=== PATIENT | male | born 1935 | race Hispanic/Latino ===

== ENCOUNTER 2016-05-18 20:46 | Inpatient (IN) | payer MEDICARE ==
[2016-05-18] MEDS: NORMAL SALINE 1,000 ML IV SCH (21:05)
[2016-05-18 21:25] LABS: Hematocrit 29.8 % (42.0-52.0); Hemoglobin 9.1 gm/dL (13.5-18.0); Mean Cell Volume 87.6 fl (78-100); Mean Corpuscular Hemoglobin 26.8 pg (27-31); Mean Corpuscular Hgb Conc 30.5 g/dl (32-36); Mean Platelet Volume 10.5 fl (6.0-9.5); Neutrophil # 3.9 K/mm3 (1.3-6.0); Neutrophil % 65.6 % (42-75.0); Platelet Count 255 K/mm3 (150-450); Red Cell Distribution Width 19.7 % (11.5-14.0); White Blood Count 5.9 K/mm3 (4.0-10.5)
[2016-05-18] MEDS ORDERED: ACETAMINOPHEN 325 MG TABLET PO ONE (21:26)
--- OUTSIDE RECORDS SUMMARY | 2016-05-18 21:37 | XMS REPORT | Continuity of Care Document ---
:1935 Author Organization [facility] ([facility]) Address [address] [place] [address] Phone [phone] Care Team Providers Name Role Phone Isabella Blakely Primary Care Provider [phone] Source Comments This disclosure is being made pursuant to the Care Everywhere program, applicable federal and state laws, and may not contain all informaitonavailable regarding this patient.[facility] ([facility]) Active Allergies and Adverse Reactions Allergen Noted Date Severity Reactions Comments Iodine Rash Current Medications Prescription Sig. Disp. Refills Start Date End Date Status rosuvastatin (CRESTOR) Take 10 mg by Active 20 mg tablet mouth every evening. metoPROLol 50 mg Take 50 mg by Active tablet mouth 2 times daily. aspirin 81 mg EC Take 81 mg by Active tablet mouth daily. nitroglycerin 0.[address] 1 tablet 05/31/2009 Active SL tablet (0.4MG) by Sublingual route at the 1st sign of attack; may repeat every 5 min until relief; if pain persists after 3 tablets in 15 min, prompt medical attention is recommended clotrimazole-betametha Apply 1 02/19/2015 Active sone 1-0.05% cream application topically 2 times daily . metFORMIN 1,000 mg Take 1,000 mg by 05/23/2015 Active tablet mouth 2 times daily. ASMANEX TWISTHALER 220 Use 2 Puffs by 09/30/2015 Active mcg (120 doses) inhalation 2 inhaler times daily. finasteride 5 mg Take 5 mg by 09/29/2015 Active tablet mouth daily. diphenhydrAMINE 50 mg Take 1 capsule 1 capsule 0 02/22/2016 Active capsule (50 mg total) by mouth once. Take 1 hour prior to the procedure ondansetron 8 mg Take 1 tablet (8 12 tablet 11 03/13/2016 Active tablet mg total) by mouth every 8 hours as needed for nausea/vomiting. PROchlorPERAZINE 10 mg Take 1 tablet (10 30 tablet 11 03/13/2016 Active tablet mg total) by mouth every 6 hours as needed for nausea/vomiting. sennosides 8.8 mg/5 mL Take 5 mL by 237 mL 2 03/21/2016 Active syrup mouth 2 times daily as needed for Constipation. ORAMAGIC-RX oral wound Take 15 mL by 315 mL 2 03/21/2016 Active rinse mouth 4 times daily as needed for Other (sore mouth/tongue). nystatin 100,000 Take 5 mL by 260 mL 0 03/21/2016 Active unit/mL suspension mouth 4 times daily. Swish and swallow. docusate 10 mg/mL Take 10 mL (100 473 mL 0 03/21/2016 Active solution mg total) by mouth 2 times daily as needed. sodium chloride 1 gram Take 1 tablet (1 90 tablet 1 04/01/2016 Active tablet g total) by mouth 2 times daily. pantoprazole 40 mg EC Take 1 tablet (40 30 tablet 2 04/01/2016 Active tablet mg total) by mouth daily. acetaminophen 500 mg Take 500 mg by Active tablet mouth every 6 hours as needed. acetaminophen 325 mg Take 2 tablets 120 tablet 3 04/22/2016 Active tablet (650 mg total) by mouth every 6 hours as needed. gabapentin 300 mg Take 1 capsule 30 capsule 11 04/24/2016 Active capsule (300 mg total) by mouth at bedtime. hydroxyurea 500 mg Take 1 capsule 30 capsule 6 04/24/2016 Active capsule (500 mg total) by mouth every 48 hours. 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 Well preserved LV function. 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 Acute inferior HI Coronary artery disease Overview: Formatting of this note may be different from the original. 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 Lmain normal. LAD large with mild irregs less than 25% mid stenosis. Cx mild irregs. RCA prox long 95% stenosis.) - 12/30/2002 STRESS TESTS: SEH (6mins. HR 134. Neg stress echo.) - 03/19/2006 SEH (6mins. HR 105. Neg stress echo for new areas of ischemia. EF 50%.) - 02/16 VASCULAR: Carotid Duplex (Minimal plaque formation bilaterally with no significant stenosis detected. Bilateral antegrade vertebral flow.) - 09/05/2004 Carotid Duplex (Vertebral: Bilateral Antegrade Flow, Right ICA peak systolic 122 cm, ICA peak diastolic 38 cm. ICA to CCA ratio 1.3. Left ICA peak systolic 82 cm, ICA peak diastolic 29. Ratio 0.7. Mil d atherosclerotic changes bilaterally.) - 06/06/2009 Carotid Duplex (Mild Disease in Bilateral ICAs, Vertebral: Bilateral Antegrade Flow) - 06/2011 Resolved Problems Problem Noted Date Resolved Date Contact dermatitis and other eczema, due to unspecified 12/03/2006 07/07/2014 cause Other Postsurgical Status 04/30/2005 07/07/2014 Most Recent Encounters Date Type Specialty Providers Description 05/09/2016 [facility] Sugey Miguel Dx: SIADH (syndrome of inappropriate ADH production) (Primary Dx) 05/07/2016 Telephone Hematology and Sergo, Chief Comp: Clarify Oncology Toshia Oquendo Medications/orders 05/07/2016 Telephone Med Hematology and Bals Eisenberg Chief Comp: Advice Oncology MD Azra Only 05/01/2016 Telephone Cancer Center Nba Middleton 04/24/2016 Hospital Cancer Infusion Baldo Dukes, Chief Comp: Patient Encounter Center Reported Reason For Visit 04/24/2016 Office Visit Med Hematology and Baldo Dukes, Dx: Follicular Oncology lymphoma (Primary Dx) 04/24/2016 [facility] Center Shaylee Otero Chief Comp: Error Encounter R 04/24/2016 Pharmacy Visit 04/24/2016 Telephone Emergency Medicine Carmen Jaffe Chief Comp: Veronica Mancini MD 04/22/2016 Hospital Emergency Medicine Cristino Berman Dx: Fever in other Encounter MD Rolo diseases (Primary Dx) 04/22/2016 Telephone Med Hematology and Lebron Golden MD Chief Comp: Fever Oncology 04/19/2016 Telephone Cancer [facility] Leslie, Chief Comp: Ngozi Henning RN Follow-up 04/16/2016 Telephone Cancer [facility] Margo May, Chief Comp: Other RN 04/12/2016 Office Visit Renal and Default, Other Chief Comp: Patient Hypertension Billg - Defo Reported Reason For Alamiry, Visit Arnold Henning MD 04/12/2016 Office Visit Pathology Yari Carcamo, Dx: SIADH (syndrome MD of inappropriate ADH Lab Services, production) Pfp 04/12/2016 Office Visit Renal and Default, Other Dx: SIADH (syndrome Hypertension Billg - Defo of inappropriate ADH Yari Carcamo, production) (Primary MD Dx) 04/10/2016 Telephone Cancer [facility] Laina Ivory Chief Comp: Follow-up 04/09/2016 Telephone Allison, Chief Comp: Orders Oncology Toshia A (to arrange test locally) 04/06/2016 Telephone Cancer [facility] Nadia, Chief Comp: Other Bernarda A 04/04/2016 Office Visit Med Hematology and Baldo Dukes, Chief Comp: Patient Oncology Reported Reason For Visit 04/03/2016 Hospital Cancer Infusion Baldo Dukes, Chief Comp: Patient Encounter Center Reported Reason For Visit 04/03/2016 Office Visit Med Hematology and Baldo Dukes, Dx: Follicular Oncology lymphoma (Primary Dx) 04/01/2016 Pharmacy Visit 03/29/2016 [facility] Neurology Rodriguez Reagan, Chief Comp: Patient Encounter Reported Reason For Visit 03/28/2016 Office Visit Family Practice Default, Other Chief Comp: Patient Billg - Defo Reported Reason For Kathy Palacio, Bebe HORTON 03/28/2016 Hospital Neurology Rodriguez Reagan, Chief Comp: Patient Encounter Reported Reason For Visit 03/27/2016 Hospital Neurology Rodriguez Reagan, Chief Comp: Patient Encounter Reported Reason For Visit 03/26/2016 - [facility] Ahmed, Dx: Altered mental 04/01/2016 Encounter Inpatient - Adult MD [place] status, unspecified Kathryn Vail altered mental MD Bruce status type (Primary Dx) 03/26/2016 Telephone Cancer Center Shaylee Otero Chief Comp: R Follow-up 03/26/2016 Telephone [facility] Reddy, Chief Comp: Medical Roseller Update 03/24/2016 Telephone Med Hematology and Saqlain, Chief Comp: Advice Oncology Arnold Estrada MD Only 03/24/2016 Telephone Med Hematology and Saqlain, Chief Comp: Patient Oncology Arnold Estrada MD Concern 03/23/2016 Telephone Cancer Center Goldy Martin Chief Comp: Vikash Barrera RN Medications/orders 03/21/2016 Office Visit [facility] Default, Other Chief Comp: Patient Billg - Defo Reported Reason For Kathy Palacio, Bebe HORTON 03/21/2016 Telephone Med Hematology and Ning Mendoza Chief Comp: Other Oncology 03/21/2016 Pharmacy Visit 03/21/2016 Telephone Cancer Center Laina Ivory Chief Comp: Forms and Letters Requests 03/19/2016 Refill Cancer Center Margo May, Chief Comp: hospital nursing assistant Problem 03/17/2016 - [facility] Charissa Arguello, Dx: Fever, 03/21/2016 Encounter Inpatient - Adult DO unspecified (Primary Dx) 03/15/2016 Telephone Med Hematology and Marjan, Chief Comp: Other Oncology Jacqueline 03/13/2016 Hospital Cancer Infusion Baldo Dukes, Dx: Follicular Encounter Center lymphoma, unspecified body region, unspecified follicular lymphoma type 03/13/2016 Office Visit Med Hematology and Baldo Dukes Dx: Follicular Oncology lymphoma, unspecified body region, unspecified follicular lymphoma type (Primary Dx) 03/13/2016 Telephone Cancer Center Laina Ivory Chief Comp: Medical Records 03/13/2016 Pharmacy Visit 03/10/2016 Telephone Srg GI Kathy Palacio MD 03/08/2016 [facility] Radiology Evan, Dx: Right leg Encounter Guillermina Seth MD swelling 03/07/2016 Office Visit Sr Vascular Marline, Dx: Right leg MD Micky swelling 03/07/2016 [facility] Heart and Vascular Marline, Chief Comp: Patient Encounter MD Micky Reported Reason For Visit 03/07/2016 Office Visit [facility] Default, Other Dx: Right leg Billg - Defo swelling (Primary Thayer-Stoelzle, Dx) MD Lalo Turk Alka C, MD 03/07/2016 Telephone [facility] Reddy, Chief Comp: Isabella Follow-up 03/02/2016 Telephone Cancer Center Sugey Miguel Chief Comp: Other 03/01/2016 Telephone Cancer Center Laina Ivory Chief Comp: Other 02/28/2016 Office Visit Med Hematology and Baldo Dukes, Dx: Follicular Oncology lymphoma (Primary Dx) 02/28/2016 [facility] Radiology Rikki Ambrose Dx: Follicular Encounter MD Bruce lymphoma 02/28/2016 [facility] Radiology Pita Daniel, Dx: Follicular Encounter lymphoma 02/22/2016 Office Visit Med Hematology and Baldo Dukes, Dx: Follicular Oncology lymphoma (Primary Dx) 02/21/2016 Telephone Cancer Center Laina Ivory Chief Comp: Other Immunizations Name Dates Previously Given Next Due Influenza, PF 11/07/2011 Influenza, high dose 10/27/2015,01/06/2015 Influenza, quadrivalent PF 01/19/2014,12/30/2012 Influenza, unspecified 12/03/2006,02/05/2005 Pneumococcal Conjugate, PCV13 (Prevnar 13) 10/27/2015 Pneumococcal Polysaccharide, PPSV23 (Pneumovax 23) 08/08/2011,02/05/2005 Td, adsorbed adult PF 12/03/2006 Social History Tobacco Use Types Packs/Day Years Used Date Former Smoker 1 30 Quit: 02/18/1979 Smokeless Tobacco: Never Used Tobacco Cessation:Counseling Given: Yes Comments: Alcohol Use Drinks/Week oz/Week Comments No Last Filed Vital Signs Vital Sign Reading Time Taken Blood Pressure 123/59 04/24/2016 7:42 AM JIG MAKER Pulse 86 04/24/2016 7:42 AM JIG MAKER Temperature 36.9 C (98.4 F) 04/24/2016 7:42 AM JIG MAKER Respiratory Rate 16 04/24/2016 7:42 AM JIG MAKER Height 1.62 m (5' 3.78") 04/24/2016 7:42 AM JIG MAKER Weight 67.6 kg (149 lb 0.5 oz) 04/24/2016 7:42 AM JIG MAKER Body Mass Index 25.76 04/24/2016 7:42 AM JIG MAKER Oxygen Saturation 96% 04/24/2016 7:42 AM JIG MAKER Plan of Care Date Type Specialty Providers Description 06/05/2016 Appointment Med Hematology and LinkBaldo MD Chief Comp: Patient Oncology [address] [place] [address] Visit [phone] (Fax) 07/31/2016 Appointment Heart and Vascular CarlosChelle MD Chief Comp: Patient [address] [place] [address] Visit [phone] (Fax) Health Maintenance Due Date Last Done Comments Hepatitis B Vaccine (1 3 - 1935 Primary Series) Tdap Vaccine 10[birth year]11/1946 Zoster Vaccine 1995 DIABETIC: Hemoglobin A1C 10/31/2005 04/30/2005, 02/05/2005, 05/27/2002 DIABETIC: Cholesterol 02/05/2006 02/05/2005 Diabetic: Hdl 02/05/2006 02/05/2005 Diabetic: Ldl 02/05/2006 02/05/2005 DIABETIC: Microalbumin 02/05/2006 02/05/2005 DIABETIC: Triglycerides 02/05/2006 02/05/2005 DIABETIC: Foot Exam 08/01/2010 DIABETIC: Retinal Eye Exam 08/01/2010 Td Vaccine 12/03/2016 12/03/2006 Colonoscopy 03/30/2026 03/30/2016 Influenza Vaccine: Seasonal Completed 10/27/2015, Additional history exists 01/06/2015, 01/19/2014 Pneumococcal Vaccine Completed 10/27/2015, 08/08/2011, 02/05/2005 AAA Screening Completed 02/28/2016, Additional history exists 05/03/2015, 04/06/2015 Procedures from Last 3 Months Procedure Name Priority Date/Time Associated Diagnosis Comments LUMBAR PUNCTURE JOSUE 03/27/2016 11:36 AM Altered mental Results for this JIG [employer]KER status, unspecified procedure are in altered mental status the results type section. Results from Last 3 Months BLOOD CULTURE (04/24/2016 12:01 PM)Only the most recent of12 resultswithin the time period is included. Component Value Range Blood Culture No Growth Specimen Blood - Blood, Venipuncture DIFFERENTIAL (04/24/2016 7:52 AM)Only the most recent of13 resultswithin the time period is included. Component Value Range % Manual Neutrophils 78.3 % Neutrophils-Manual 5103 4096-1060 /MM3 % Manual Lymphocytes 6.1 % Lymphocytes-Manual 397(L) 875-3300 /MM3 % Manual Monocytes 13.9 % Monocytes-Manual 907(H) 130-860 /MM3 % Manual Reactive Lymphocytes 1.7 % Reactive Lymphocytes-Manual 113 0-315 /MM3 ANC (Absolute Neutrophil Count) 5103 /MM3 Specimen Whole Blood CBC (COMPLETE BLOOD COUNT) (04/24/2016 7:52 AM)Only the most recent of13 resultswithin the time period is included. Component Value Range WBC Count 6.5 3.7-10.5 K/MM3 RBC Count 3.78(L) 4.50-6.20 M/MM3 Hemoglobin 10.4(L) 13.2-17.7 g/dL Hematocrit 34(L) 40-52 % MCV (Mean Corpuscular Volume) 91 82-99 FL MCH (Mean Corpuscular Hemoglobin) 28 25-35 PG MCHC (Mean Corpuscular Hemoglobin Concentration) 30(L) 32-36 % Platelet Count 421(H) 150-400 K/MM3 MPV (Mean Platelet Volume) 9.6 9.4-12.3 FL RBC Dist Width-STD 57.6(H) 35.1-43.9 FL RBC Distrib Width 17.1(H) 9.0-14.5 % Nucleated RBC 0 /100 WBC Specimen Whole Blood BLOOD CELL MORPHOLOGY (04/24/2016 7:52 AM)Only the most recent of9 resultswithin the time period is included. Component Value Range Polychromasia 1+ Dohle Bodies Present Large Platelet Present Specimen Whole Blood C-REACTIVE PROTEIN (04/24/2016 7:52 AM)Only the most recent of2 resultswithin the time period is included. Component Value Range CRP (C-Reactive Protein) 4.3(H) <=0.5 mg/dL Specimen Blood ERYTHROCYTE SEDIMENTATION RATE (04/24/2016 7:52 AM)Only the most recent of2 resultswithin the time period is included. Component Value Range ESR (Erythrocyte Sedimentation Rate) 85(H) 0-15 mm/Hr Specimen Whole Blood CBC WITH DIFFERENTIAL (04/24/2016 7:52 AM)Only the most recent of13 resultswithin the time period is included. Specimen Whole Blood Narrative The following orders were created for panel order CBC WITH DIFFERENTIAL. Procedure Abnormality Status --------- ------ CBC (COMPLETE BLOOD COUNT)[[id number]] AbnormalFinal result DIFFERENTIAL[[id number]] AbnormalFinal result Please view results for these tests on the individual orders. LACTATE DEHYDROGENASE (LDH) (04/24/2016 7:52 AM)Only the most recent of7 resultswithin the time period is included. Component Value Range LDH 340(H) 135-225 U/L Specimen Blood CHLORIDE (04/24/2016 7:52 AM)Only the most recent of2 resultswithin the time period is included. Component Value Range Chloride 92(L) 95-107 mEq/L Specimen Blood BLOOD UREA NITROGEN (04/24/2016 7:52 AM)Only the most recent of2 resultswithin the time period is included. Component Value Range BUN 11 10-20 mg/dL Specimen Blood ASPARTATE AMINOTRANSFERASE (04/24/2016 7:52 AM)Only the most recent of2 resultswithin the time period is included. Component Value Range AST 63(H)Comment: 0-40 U/L Adult reference ranges updated on 01/13/13 at 830am Specimen Blood ALANINE AMINOTRANSFERASE (04/24/2016 7:52 AM)Only the most recent of2 resultswithin the time period is included. Component Value Range ALT 55(H)Comment: 0-41 U/L The upper limit of normal for alanine aminotransferase (ALT) reference ranges for adults is controversial with some authorities recommending limit as low as 30 U/L for males and 19 U/L for females. Th ere is increased incidence of subclinical liver disease (e.g., early steatohepatitis) in patients with ALT values in the range of 31-41 U/L for males and 20-33 U/L for females. ALT values should alway s be interpreted in conjunction with clinical history, physical examination findings, and, if applicable, data from other diagnostic tests. Specimen Blood SODIUM (04/24/2016 7:52 AM)Only the most recent of7 resultswithin the time period is included. Component Value Range Sodium 128(L) 135-145 mEq/L Specimen Blood TOTAL PROTEIN (04/24/2016 7:52 AM)Only the most recent of2 resultswithin the time period is included. Component Value Range Total Protein 6.8 6.0-8.0 g/dL Specimen Blood POTASSIUM (04/24/2016 7:52 AM)Only the most recent of2 resultswithin the time period is included. Component Value Range Potassium 4.2 3.5-5.0 mEq/L Specimen Blood ALKALINE PHOSPHATASE (04/24/2016 7:52 AM)Only the most recent of2 resultswithin the time period is included. Component Value Range ALP 755(H) 40-129 U/L Specimen Blood CREATININE (04/24/2016 7:52 AM)Only the most recent of2 resultswithin the time period is included. Component Value Range Creatinine 0.5(L)Comment: 0.6-1.2 mg/dL Creatinine switched to enzymatic method on 06/27/2010.GFR equation switched to IDMS-traceable MDRD equation on 06/27/2010. Calculated GFR values are not valid in clinical settings where serum creatinine is changing. Calculated GFR >90 >60 mL/min/1.73 m2 Specimen Blood CO2 (04/24/2016 7:52 AM)Only the most recent of2 resultswithin the time period is included. Component Value Range CO2 26 22-29 mEq/L Anion Gap 10 8-18 mEq/L Specimen Blood CALCIUM (04/24/2016 7:52 AM)Only the most recent of2 resultswithin the time period is included. Component Value Range Calcium 9.4 8.5-10.5 mg/dL Specimen Blood BILIRUBIN, TOTAL (04/24/2016 7:52 AM)Only the most recent of4 resultswithin the time period is included. Component Value Range Bilirubin Total 0.6 <=1.2 mg/dL Specimen Blood ALBUMIN (04/24/2016 7:52 AM)Only the most recent of2 resultswithin the time period is included. Component Value Range Albumin 3.5 3.4-4.8 g/dL Specimen Blood MICROSCOPIC URINALYSIS (04/22/2016 9:59 PM)Only the most recent of3 resultswithin the time period is included. Component Value Range White Blood Cells, Urine 5 0-5 /HPF Red Blood Cells, Urine <1 0-2 /HPF Squamous Epithelial Cells, Urine 10 <=10 /LPF Mucous-Urine Rare None, Rare Specimen Urine URINALYSIS WITH REFLEX CULTURE (04/22/2016 9:59 PM)Only the most recent of3 resultswithin the time period is included. Component Value Range Color, Urine Yellow Straw, Pale Yellow, Yellow, Clear, None Clarity, Urine Clear Clear pH, Urine 5.0 <9.0 Spec [place], Urine 1.020 1.000-1.030 Glucose, Urine Negative Negative Blood, Urine Negative Negative Ketones, Urine Negative Negative Protein, Urine Negative Negative Urobilinogen, Urine 2+(A) Normal Bilirubin, Urine Negative Negative Leukocyte Esterase, Urine Negative Negative Nitrite, Urine Negative Negative Specimen Urine URINALYSIS WITH REFLEXED CULTURE AND MICROSCOPIC EXAM (04/22/2016 9:59 PM)Only the most recent of3 resultswithin the time period is included. Specimen Culture - Urine, Midstream clean catch Narrative The following orders were created for panel order URINALYSIS WITH REFLEXED CULTURE AND MICROSCOPIC EXAM. Procedure Abnormality Status --------- ------ URINALYSIS WITH REFLEX C...[[id number]]AbnormalFinal result MICROSCOPIC URINALYSIS[[id number]] Normal Final result URINE CULTURE, REFLEXED[[id number]]Normal Final result Please view results for these tests on the individual orders. URINE CULTURE, REFLEXED (04/22/2016 9:59 PM) Component Value Range Quantitative Culture No growth at 02/999 dilution Specimen Culture - Urine, Midstream clean catch CHEST- PA& LATERAL (04/22/2016 9:06 PM)Only the most recent of2 resultswithin the time period is included. Impressions Findings / Impression: There is redemonstration of bilateral interstitial prominence, grossly unchanged, related to known pulmonary fibrosis, better evaluated on CT dated 02/28/2016. Decreased lung volumes. Bibasilar atelectasis is decreased since prior exam. No new consolidation or lobar collapse. No significant pleural effusion or pneumothorax. The cardiac silhouette is poorly defined, grossly within normal range. The exam is otherwise unchanged. Narrative Procedure: CHEST- PA & LATERAL Clinical Indication: Fever, 5 weeks status post chemotherapy Comparison: 03/31/2016 Procedure Note Caesar, Incoming Imaging Results - Sun Apr 22, 2016 11:30 PM [facility]ER Procedure: CHEST- PA & LATERAL Clinical Indication: Fever, 5 weeks status post chemotherapy Comparison: 03/31/2016 IMPRESSION Findings / Impression: There is redemonstration of bilateral interstitial prominence, grossly unchanged, related to known pulmonary fibrosis, better evaluated on CT dated 02/28/2016. Decreased lung volumes. Bibasilar atelectasis is decreased since prior exam. No new consolidation or lobar collapse. No significant pleural effusion or pneumothorax. The cardiac silhouette is poorly defined, grossly within normal range. The exam is otherwise unchanged. LACTIC ACID, WHOLE BLOOD (CRITICAL CARE LABORATORY) (04/22/2016 8:40 PM)Only the most recent of4 resultswithin the time period is included. Component Value Range Lactic Acid, Whole Blood 1.9Comment: 0.5-2.0 mEq/L Glycolate, the principle toxic metabolite of ethylene glycol, can cause artifactual elevation of measured lactate. Specimen Whole Blood LIVER PANEL (04/22/2016 8:40 PM)Only the most recent of2 resultswithin the time period is included. Component Value Range Bilirubin Total 0.6 <=1.2 mg/dL AST 70(H)Comment: 0-40 U/L Adult reference ranges updated on 01/13/13 at 830am ALT 53(H)Comment: 0-41 U/L The upper limit of normal for alanine aminotransferase (ALT) reference ranges for adults is controversial with some authorities recommending limit as low as 30 U/L for males and 19 U/L for females. Th ere is increased incidence of subclinical liver disease (e.g., early steatohepatitis) in patients with ALT values in the range of 31-41 U/L for males and 20-33 U/L for females. ALT values should alway s be interpreted in conjunction with clinical history, physical examination findings, and, if applicable, data from other diagnostic tests. ALP 681(H) 40-129 U/L GGT 444(H) 8-61 U/L Albumin 3.1(L) 3.4-4.8 g/dL Total Protein 6.6 6.0-8.0 g/dL Specimen Blood BASIC METABOLIC PANEL W/ CALCIUM (CHEM 8) (04/22/2016 8:40 PM)Only the most recent of14 resultswithin the time period is included. Component Value Range Sodium 132(L) 135-145 mEq/L Potassium 4.6 3.5-5.0 mEq/L Chloride 92(L) 95-107 mEq/L CO2 25 22-29 mEq/L Anion Gap 15 8-18 mEq/L BUN 13 10-20 mg/dL Creatinine 0.5(L)Comment: 0.6-1.2 mg/dL Creatinine switched to enzymatic method on 06/27/2010.GFR equation switched to IDMS-traceable MDRD equation on 06/27/2010. Calculated GFR values are not valid in clinical settings where serum creatinine is changing. Glucose 115(H)Comment: 65-99 mg/dL The Expert Committee on the Diagnosis and Classification of Diabetes has defined impaired fasting glucose as greater than or equal to 100 mg/dL but less than 126 mg/dL.(Diabetes Care 28 (Suppl 1)S41,2005) Calcium 8.9 8.5-10.5 mg/dL Calculated GFR >90 >60 mL/min/1.73 m2 Specimen Blood OSMOLALITY, PLASMA (04/12/2016 11:54 AM)Only the most recent of3 resultswithin the time period is included. Component Value Range Osmolality, Plasma 277(L) 280-300 mOsm/kg Specimen Blood URIC ACID (04/12/2016 11:54 AM)Only the most recent of3 resultswithin the time period is included. Component Value Range Uric Acid 2.9(L) 3.4-7.0 mg/dL Specimen Blood CHEM 6 PANEL (04/12/2016 11:54 AM) Component Value Range Sodium 134(L) 135-145 mEq/L Chloride 93(L) 95-107 mEq/L Potassium 4.5 3.5-5.0 mEq/L CO2 26 22-29 mEq/L BUN 12 10-20 mg/dL Creatinine 0.5(L)Comment: 0.6-1.2 mg/dL Creatinine switched to enzymatic method on 06/27/2010.GFR equation switched to IDMS-traceable MDRD equation on 06/27/2010. Calculated GFR values are not valid in clinical settings where serum creatinine is changing. Anion Gap 15 8-18 mEq/L Calculated GFR >90 >60 mL/min/1.73 m2 Specimen Blood CBC (COMPLETE BLOOD COUNT) (04/01/2016 9:45 AM)Only the most recent of4 resultswithin the time period is included. Component Value Range WBC Count 6.9 3.7-10.5 K/MM3 RBC Count 3.34(L) 4.50-6.20 M/MM3 Hemoglobin 10.2(L) 13.2-17.7 g/dL Hematocrit 30(L) 40-52 % MCV (Mean Corpuscular Volume) 90 82-99 FL MCH (Mean Corpuscular Hemoglobin) 31 25-35 PG MCHC (Mean Corpuscular Hemoglobin Concentration) 34 32-36 % Platelet Count 325 150-400 K/MM3 MPV (Mean Platelet Volume) 9.2(L) 9.4-12.3 FL RBC Dist Width-STD 58.6(H) 35.1-43.9 FL RBC Distrib Width 17.6(H) 9.0-14.5 % Nucleated RBC 0 /100 WBC Specimen Whole Blood BLOOD GLUCOSE, BEDSIDE (04/01/2016 8:38 AM)Only the most recent of31 resultswithin the time period is included. Component Value Range Glucose, Accu-Chek 182(H) 65-99 mg/dL Specimen Blood, capillary URINE CULTURE, ROUTINE AEROBIC (03/31/2016 9:49 PM)Only the most recent of2 resultswithin the time period is included. Component Value Range Quantitative Culture <10,000 CFU/mL Enterobacter aerogenes(A) Specimen Culture - Urine, Midstream clean catch Narrative Identification performed by MALDI-TOF mass spectrometry (MS).The performance characteristics of MALDI-TOF MS were determined by the [facility].It has not been cleared orApproved by the FDA. The FDA has determined that such clearance or approval is not necessary.This test is for clinical purposes. It should not be regarded as investigational or for research.The laboratory is certified under the Clinical Laboratory Improvement Amendments of 1988 (CLIA) as qualified to perform high complexity clinical laboratory testing. CHEST - AP/PA (03/31/2016 5:14 PM)Only the most recent of3 resultswithin the time period is included. Impressions Findings / Impression: Stable bilateral interstitial prominence and basilar atelectasis. No new focal consolidation. No pneumothorax. Cardiomediastinal silhouette is stable. Pulmonary vasculature is normal. Narrative Procedure: CHEST - AP/PA Technique: Portable AP chest radiograph Comparison: Chest radiograph(s) dated: 03/30/2016. Clinical Indication: Fever and cough Procedure Note Caesar, Incoming Imaging Results - Sun Apr 01, 2016 1:19 AM JIG MAKER Procedure: CHEST - AP/PA Technique: Portable AP chest radiograph Comparison: Chest radiograph(s) dated: 03/30/2016. Clinical Indication: Fever and cough IMPRESSION Findings / Impression: Stable bilateral interstitial prominence and basilar atelectasis. No new focal consolidation. No pneumothorax. Cardiomediastinal silhouette is stable. Pulmonary vasculature is normal. HEMOGLOBIN& CALCULATED HEMATOCRIT - (CRITICAL CARE LABORATORY) (03/30/2016 8: 55 PM)Only the most recent of2 resultswithin the time period is included. Component Value Range Hemoglobin - CCL 7.9(L) 13.2-17.7 g/dL Hematocrit (Calc) - CCL 24(L) 40-52 % Specimen Blood RED BLOOD CELLS, ADMINISTER (03/30/2016 6:33 PM)Only the most recent of2 resultswithin the time period is included.RED BLOOD CELLS DISPENSE FROM BLOOD BANK (03/30/2016 2:55 PM) Component Value Range Blood Coding System [id number] Blood Product Volume 325 Blood Product ABORH O Pos Blood Unit Number [id number] BLOOD DISPENSE STATUS ISS Blood Product Type Red Blood Cells Blood Product Code [id number] ENDOSCOPY COLONOSCOPY& ENDOSCOPY UPPER (03/30/2016 12:28 PM) Narrative Gerry Tenorio MD 03/30/2016 12:28 PM ENDOSCOPY COLONOSCOPY & ENDOSCOPY UPPER Esophagogastroduodenoscopy and colonoscopy procedure note Procedure Date: 03/30/2016 Procedure: EGD and Colonoscopy Indications: Melena and maroon colored stool Attending Staff: Kathryn Vail MD Fellow: Anjel Ahuja MD Referring Provider: Isabella Blakely Consent: The risks, benefits, indications, potential complications, and alternatives were explained to the patient and informed consent obtained. Medications: No current facility-administered medications on file prior to encounter. Current Outpatient Prescriptions on File Prior to Encounter Medication Sig Dispense Refill ASMANEX TWISTHALER 220 mcg (120 doses) inhaler Use 2 Puffs by inhalation 2 times daily. aspirin 81 mg EC tablet Take 81 mg by mouth daily. clotrimazole-betamethasone 1-0.05% cream Apply 1 application topically 2 times daily . diphenhydrAMINE 50 mg capsule Take 1 capsule (50 mg total) by mouth once. Take 1 hour prior to the procedure 1 capsule 0 docusate 10 mg/mL solution Take 10 mL (100 mg total) by mouth 2 times daily as needed. 473 mL 0 finasteride 5 mg tablet Take 5 mg by mouth daily. metFORMIN 1,000 mg tablet Take 1,000 mg by mouth 2 times daily. metoPROLol 50 mg tablet Take 50 mg by mouth 2 times daily. naproxen 25 mg/mL suspension Take 20 mL (500 mg total) by mouth daily at noon after a meal. 140 mL 0 nitroglycerin 0.[address] 1 tablet (0.4MG)by Sublingual route at the 1st sign of attack; may repeat every 5 min until relief; if pain persists after 3 tablets in 15 min, prompt medical attention is recommended nystatin 100,000 unit/mL suspension Take 5 mL by mouth 4 times daily. Swish and swallow. 260 mL 0 ondansetron 8 mg tablet Take 1 tablet (8 mg total) by mouth every 8 hours as needed for nausea/vomiting. 12 tablet 11 ORAMAGIC-RX oral wound rinse Take 15 mL by mouth 4 times daily as needed for Other (sore mouth/tongue). 315 mL 2 predniSONE 50 mg tablet Take 50mg (1 tab) by mouth 13 hours, 7 hours and 1 hour prior to the procedure. 3 tablet 0 PROchlorPERAZINE 10 mg tablet Take 1 tablet (10 mg total) by mouth every 6 hours as needed for nausea/vomiting. 30 tablet 11 rosuvastatin (CRESTOR) 20 mg tablet Take 10 mg by mouth every evening. sennosides 8.8 mg/5 mL syrup Take 5 mL by mouth 2 times daily as needed for Constipation. 237 mL 2 sodium chloride 1 gram tablet Take 1 tablet (1 g total) by mouth 3 times daily. 90 tablet 1 Allergies: Allergies Allergen Reactions Iodine Rash ASA Class: 3 Preoperative Anesthesia Assessment: Based on the pre-procedure assessment, including review of the patient's medical history, medications, allergies, and review of systems, he had been deemed to be an appropriate candidate for conscious sedation; he was therefore sedated with the medications listed below. Procedural Medications: Versed 3 mg IV, fentanyl 50 mcg IV The procedure sedation was given under my direction from 03/30/16 11:26 AM to03/30/16 12:05 PM. Description of Procedure: The patient was placed in the left lateral decubitus position. The patient was monitored continuously withpulse oximetry, blood pressure monitoring, and direct observations. The gastroscope was inserted into the mouth and advanced under direct vision to third portion of the duodenum.A careful inspection was made as the gastroscope was withdrawn, including a retroflexed view of the proximal stomach; findings and interventions are described below. Patient was repositioned for colonoscopy. A rectal examination was performed.The colonoscope was inserted into the rectum and advanced under direct vision to the terminal ileum.A careful inspection was made as the colonoscope was withdrawn, including a retroflexed view of the rectum; findings and interventions are described below. The quality of the colonic preparation was fair. Photographs: Appropriate photodocumentation was obtained. Biopsy/Specimens: None Findings: EGD Duodenum: the duodenum was explored to D3.The mucosa was endoscopically normal without ulcerations or erosions.Random biopsies were not taken. Stomach: Mild mucosal erythema. No ulcers, erosions, erythema. Esophagus:Z-line was noted at 35 cm and was regular.no hiatal hernia.No esophageal varices, no endoscopic evidence of esophagitis. Colonoscopy Terminal ileum - distal 5 cm - normal appearing mucosa. Cecum: normal appearing mucosa Ascending colon: mild to moderate diverticular disease, no bleeding detected Transverse colon: mild to moderate diverticular disease Descending colon: moderate diverticular disease Sigmoid colon: moderate to severe diverticulosis, there was colonic mucosal thickening at 40 cm that made intubation somewhat challenging Rectum: normal appearing mucosa including retroflexed views Complications: The patient did tolerate the procedure well and no complications were noted. Impression: No signs of recent or active bleeding. Bleeding source is likely diverticular and has stopped. Plan: If hematochezia recurs, we recommend to consult IR for embolization. Anjel Ahuja MD Gastroenterology/Hepatology Fellow Pager#: [phone] Teaching Statement: Dr. Aj Griffin was present for the entire procedure. Gerry Eli MD Clinical Audio Visual Collections Coordinator Department of Internal Medicine Division of Gastroenterology and Hepatology [address] [place] [address] Fax [email or web address] EXTRA PST TUBE (03/29/2016 10:37 PM) Component Value Range Extra PST Tube Store Specimen Blood PTT (PARTIAL THROMBOPLASTIN TIME) (03/29/2016 4:10 PM)Only the most recent of2 resultswithin the time period is included. Component Value Range PTT 26 22-31 secs Specimen Blood PT/INR (PROTHROMBIN TIME/INR) VENOUS (03/29/2016 4:10 PM)Only the most recent of2 resultswithin the time period is included. Component Value Range PT (Prothrombin Time) 12 9-12 secs INR 1.2 <4.0 Specimen Blood HEMOGLOBIN (03/29/2016 3:19 PM) Component Value Range Hemoglobin 7.4(L) 13.2-17.7 g/dL Specimen Whole Blood EEG - CONTINUOUS BEDSIDE EEG MONITORING (03/29/2016 2:11 PM)Only the most recent of2 resultswithin the time period is included. Rodriguez Thurman MD 03/29/20162:11 PM Department of Neurology Division of Neurophysiology EEG Lab Continuous Bedside EEG Monitoring (CBEM) with Video (Ordering information is on Day 0 of this procedure note.) Identifying Information: Patient Name:NISA SEPULVEDA SR. Age and sex:80 y.o. man Daily Interpretation: Day 1: times/dates reviewed: From 07:46 AM on 03/28/2016 to 11:39 AM on 03/29/2016 Clinical State: Awake and asleep Electrographic Findings: Background: The posterior dominant rhythm show 9 Hz at 26 uV. The general background showed intermixed symmetric alpha frequencies with diffuse mild theta slow wave frequencies. Interictal Discharges: None Ictal Discharges: None Reactive EEG change: Present Clinical Events (video): None Description: The posterior dominant rhythm show 9 Hz at 26 uV. The general background showed intermixed symmetric alpha frequencies with diffuse mild theta slow wave frequencies.No epileptiform discharges noted. Impression: Findings show mild encephalopathy but does not show focal changes to explain a language disturbance. Findings reported to Dr. Jennifer Kumar MD of the Neurology Consult Service (pager [phone]).Recording continues. Staff Involved Staff Only Rodriguez Reagan MD Neurology Staff Electronically signed TYPE AND SCREEN (BLOOD TYPE(ABORH) AND RBC ANTIBODY SCREEN) (03/29/2016 9:13 AM ) Component Value Range ABORH O Positive Specimen Expiration Date 2016-04-01 Antibody Screen Negative Specimen Blood PHOSPHORUS (03/28/2016 9:55 AM)Only the most recent of3 resultswithin the time period is included. Component Value Range Phosphorus 2.9Comment:New reference range installed 11/30/14. 2.5-4.5 mg/dL Specimen Blood MAGNESIUM (03/28/2016 9:55 AM) Component Value Range Magnesium 1.5 1.5-2.9 mg/dL Specimen Blood CRYPTOCOCCAL ANTIGEN (03/28/2016 9:55 AM)Only the most recent of2 resultswithin the time period is included. Component Value Range Cryptococcal Antigen Negative Negative Specimen Other - Blood, Venipuncture MRI BRAIN W/WO CONTRAST ([id number]) (03/27/2016 9:50 PM) Impressions Impression: 1. No evidence of intracranial lymphoma. 2. No acute intracranial findings. This final report is in agreement with the critical and emergent preliminary findings reported by the radiology orderly economic analyst. Narrative Procedure: MRI BRAIN W/WO CONTRAST ([id number]) Indication: Evaluate for CLAMP JIG ASSEMBLER lymphoma Technique: Multisequence, multiplanar MRI of the brain before and after the uneventful administration of 7 mL Gadavist IV contrast. Comparison: CT brain 03/26/2016 Findings: Exam is degraded by motion artifact. There is no acute infarct, intracranial mass, or intra or extra-axial hemorrhage. There is no pathologic enhancement. No evidence of leptomeningeal enhancement. The ventricles, cortical sulci and basal cisterns are symmetric and appropriate. Normal brainstem and posterior fossa. The pituitary and suprasellar region are unremarkable. The major intracranial flow-voids are preserved. Normal orbits. Small mucosal retention cyst in the right maxillary sinus. Small amount fluid in the right mastoid air cells. Normal bone marrow signal. Procedure Note Caesar, Incoming Imaging Results - SatMar 28, 2016 12:55 PM JIG MAKER Procedure: MRI BRAIN W/WO CONTRAST ([id number]) Indication: Evaluate for CLAMP JIG ASSEMBLER lymphoma Technique: Multisequence, multiplanar MRI of the brain before and after the uneventful administration of 7 mL Gadavist IV contrast. Comparison: CT brain 03/26/2016 Findings: Exam is degraded by motion artifact. There is no acute infarct, intracranial mass, or intra or extra-axial hemorrhage. There is no pathologic enhancement. No evidence of leptomeningeal enhancement. The ventricles, cortical sulci and basal cisterns are symmetric and appropriate. Normal brainstem and posterior fossa. The pituitary and suprasellar region are unremarkable. The major intracranial flow-voids are preserved. Normal orbits. Small mucosal retention cyst in the right maxillary sinus. Small amount fluid in the right mastoid air cells. Normal bone marrow signal. IMPRESSION Impression: 1. No evidence of intracranial lymphoma. 2. No acute intracranial findings. This final report is in agreement with the critical and emergent preliminary findings reported by the radiology orderly economic analyst. MRI CERVICAL, THORACIC& LUMBAR SPINE W/WO CONTRAST ([id number]) (2016 9:43 PM) Impressions Impression: 1. No evidence of CLAMP JIG ASSEMBLER lymphoma 2. 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 Narrative Procedure:MRI CERVICAL, THORACIC & LUMBAR SPINE W/WO CONTRAST ([id number]) Indication: Evaluate for CLAMP JIG ASSEMBLER lymphoma Technique: Multisequence, multiplanar MRI of the total spine before and after the uneventful administration of 11 mL GadavistIV contrast. Comparison: CT chest abdomen pelvis dated 02/28/2016 Findings: -Cervical: Alignment of the cervical spine is anatomical.Marrow signal is normal. No abnormal enhancement is seen. Spinal cord signal is normal.There is no diffusion restriction. The thyroid gland is normal.Vascular flow voids are intact. Large central posterior disc extrusion at C3-C4 causing severe central canal stenosis. -Thoracic: Alignment of the thoracic spine is anatomic. Bone marrow signal is normal. Incidental note of hemangioma at T5. Spinal cord signal is unremarkable. There is no abnormal enhancement. There is no diffusion abnormality. The visualized paravertebral structures appear unremarkable. Bilateral pulmonary nodules again demonstrated. Small posterior disc bulge at T2-T3 without significant stenosis. Small posterior disc bulges at T8-T9, T9-T10, T10-T11, with mild canal stenosis at T8-T9 and T10-T11. -Lumbar: Alignment of the lumbar spine is anatomic.The conus medullaris is in normal position and terminates at the L1 level. Bone marrow signal is unremarkable.There is no abnormal spinal cord signal. There is no abnormal enhancement. Multilevel degenerative changes worse at L5-S1 causing mild canal and moderate bilateral neuroforaminal stenosis. Redemonstration of the right common iliac and right external iliac lymphadenopathy, consistent with known lymphoma. Procedure Note Caesar, Incoming Imaging Results - SatMar 28, 2016 12:55 PM JIG MAKER Procedure:MRI CERVICAL, THORACIC & LUMBAR SPINE W/WO CONTRAST ([id number]) Indication: Evaluate for CLAMP JIG ASSEMBLER lymphoma Technique: Multisequence, multiplanar MRI of the total spine before and after the uneventful administration of 11 mL Gadavist IV contrast. Comparison: CT chest abdomen pelvis dated 02/28/2016 Findings: -Cervical: Alignment of the cervical spine is anatomical. Marrow signal is normal. No abnormal enhancement is seen. Spinal cord signal is normal. There is no diffusion restriction. The thyroid gland is normal. Vascular flow voids are intact. Large central posterior disc extrusion at C3-C4 causing severe central canal stenosis. -Thoracic: Alignment of the thoracic spine is anatomic. Bone marrow signal is normal. Incidental note of hemangioma at T5. Spinal cord signal is unremarkable. There is no abnormal enhancement. There is no diffusion abnormality. The visualized paravertebral structures appear unremarkable. Bilateral pulmonary nodules again demonstrated. Small posterior disc bulge at T2-T3 without significant stenosis. Small posterior disc bulges at T8-T9, T9-T10, T10-T11, with mild canal stenosis at T8-T9 and T10-T11. -Lumbar: Alignment of the lumbar spine is anatomic. The conus medullaris is in normal position and terminates at the L1 level. Bone marrow signal is unremarkable. There is no abnormal spinal cord signal. There is no abnormal enhancement. Multilevel degenerative changes worse at L5-S1 causing mild canal and moderate bilateral neuroforaminal stenosis. Redemonstration of the right common iliac and right external iliac lymphadenopathy, consistent with known lymphoma. IMPRESSION Impression: 1. No evidence of CLAMP JIG ASSEMBLER lymphoma 2. 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 LUMBAR PUNCTURE (03/27/2016 11:36 AM) Narrative Virginia Jeff MD 03/27/2016 11:36 AM Lumbar Puncture Procedure Note Procedure Date:03/26/2016 Attending Staff: Virginia Jeff MD Resident/Fellow/PA/PARKING LOT MANAGER: Cristino Radford MD Indication:Emergent evaluation for CLAMP JIG ASSEMBLER infection or bleeding This procedure was performed emergently due to the patient's medical condition. Time out: No. Anesthetic: The LP site was anesthetized with Lidocaine 1% without epinephrine. Description of Procedure: The patient was placed in the decubitus position.The iliac crest landmarks were identified, and attention was focused on the L3-4 interspace.The area was prepped using Betadine solution and draped in a sterile fashion.The skin and interspace area were anesthetized with Lidocaine 1% without epinephrine.A spinal needle was advanced until spinal fluid was obtained.The fluid was initially blood-tinged, however became clear and colorless in appearance by the time the 2nd tube was filled. The patient tolerated the procedure well and was neurologically intact after the procedure. Complications:No complications. Plan:The patient instructed to remain in a supine position for 30 minutes following the procedure. Author: Cristino Radford MD Procedure Statement I was available for the entire procedure and present for amaya portions including immediate pre-assessment, procedural planning and post procedural assessment. Virginia Jeff MD, JOSELYN Clinical Professor of Emergency Medicine [facility] Department of Emergency Medicine FLOW CYTOMETRY ANALYSIS, OTHER (03/26/2016 9:33 PM) Component Value Range Flow Cytometry Specimen source: Other, Specify Description: csf Interpretation Findings show T-cells with increased CD4:CD8 ratio (14.2:1) and no immunophenotypic aberrancy.Final interpretation requires correlation with morphologic, clinical and other laboratory features. Findings Multicolor flow cytometric analysis reveals an admixture of: 78.8% T lymphocytes (CD4:CD8=14.2:1) 2.6% NK cells B-lymphocytes are not identified. Remaining events are attributable to uncharacterized populations and debris. Marker Panel Performed CD4/CD30/CD7/CD5/CD2/CD56/CD8/CD3/CD45/CD14 LAMBDA/KAPPA/CD23/CD5/CD10/CD200/CD20/FMC7/CD45/CD19 Performed by: Carmen Sneed MD, R1 I have personally reviewed this case and edited the report as necessary. Comment:Notice: Tests involving the use of the monoclonal and/or polyclonal antibodies utilized in this study were developed and their performance characteristics determined [facility] They are included among the group of laboratory testing materials know as "analyte specific reagents" and have not been cleared or approved by the U.S. Food and Drug Administration. (The preceding statement is required by the U.S.FDA.) Specimen Other - Other, Specify GORDON VIRUS (POLYOMAVIRUS) BY PCR (03/26/2016 9:33 PM) Component Value Range GORDON Virus PCR, CSF NegativeComment: Negative ADDITIONAL INFORMATION This test was developed and its performance characteristics determined by [facility] in a manner consistent with CLIA requirements. This test has not been cleared or approved by the U.S. Food and Drug Administration. Specimen Cerebrospinal fluid Narrative Test Performed by: [facility] [place] [address] Pump Erector: Blas Fung II, M.D., Ph.D. CSF CYTOSPIN (03/26/2016 9:33 PM) Component Value Range CSF Cytospin Path Review Clinical history: 80 y.o. male with a history of follicular lymphoma (stage IV, grade 2, diagnosed 2002), coronary artery disease , myocardial infarct (status-post stent to the RCA in 2002), HTN, hyper lipidemia, and diabetes mellitus type II, who presents with altered mental status. Review of the cytospin preparation of spinal fluid demonstrates no atypical hematopoietic cells. Performed by:Patricia Eller MD, R2 I have personally reviewed this case and edited the report as necessary. Hernandez García MD, PhD Specimen CSF SPECIMEN STORAGE (03/26/2016 9:33 PM) Specimen Other Narrative Specimen used for Flow Cytometry Analysis, Other. Order #[id number] CSF CELL COUNT AND DIFF (03/26/2016 9:33 PM) Component Value Range Clarity, CSF Clear Clear Xanthochromia, CSF Not Indicated Not Present Color, CSF None None Total Nucleated Count, CSF 66(H) 0-5 /MM3 RBC Count, CSF <500 /MM3 Neutrophils, CSF 2 /MM3 Lymphocytes, CSF 63 /MM3 Histiocytes, CSF 1 /MM3 % Neutrophils, CSF 3.0 % % Lymphocytes, CSF 96.0 % % Histiocytes, CSF 1.0 % Specimen CSF TOTAL PROTEIN - CSF (03/26/2016 9:33 PM) Component Value Range Total Protein, CSF 342(H) 15-45 mg/dL Specimen CSF GLUCOSE-CSF (03/26/2016 9:33 PM) Component Value Range Glucose, CSF 49 40-75 mg/dL Specimen CSF FUNGAL CULTURE (INCLUDES DIRECT STAIN) (03/26/2016 9:33 PM) Component Value Range Fungal Culture No fungi isolated Calcofluor White Stain No yeast or fungal elements observed Specimen Culture - CSF Lumbar puncture MENINGITIS/ENCEPHALITIS PANEL (03/26/2016 9:33 PM) Component Value Range Escherichia coli Not DetectedComment: Not Detected Non-K1 E. coli strains are not detected by the meningitis/encephalitis panel. Haemophilus influenzae Not Detected Not Detected Listeria monocytogenes Not Detected Not Detected Neisseria meningitidis Not DetectedComment: Not Detected Non-encapsulated N. meningitidis strains are not detected by the meningitis/ encephalitis panel. Streptococcus agalactiae Not Detected Not Detected Streptococcus pneumoniae Not Detected Not Detected Cytomegalovirus (CMV) Not Detected Not Detected Enterovirus Not Detected Not Detected Parechovirus Not Detected Not Detected Herpes simplex virus 1 (HSV-1) Not Detected Not Detected Herpes simplex virus 2 (HSV-2) Not Detected Not Detected Human herpesvirus 6 (HHV-6) Not Detected Not Detected Varicella zoster virus (VZV) Not Detected Not Detected Cryptococcus neoformans/gattii Not Detected Not Detected Specimen Culture - CSF Lumbar puncture Narrative Cryptococcus PCR lacks sensitivity and cannot fully rule out cryptococcal meningitis; Cryptococcus antigen ([place] [id number]) may be ordered if rapid testing is desired. Enterovirus testing includes Coxsackievirus A/B, Echovirus, and Enterovirus, including EV-D68, EV-D70 and EV-D71. Bacterial culture, Gram stain and susceptibility testing are always performed with this order. Pretreatment may result in a PCR-positive, culture negative result. Test method: PCR Amplification; [employer] ME Panel ([employer]) ANAEROBIC CULTURE (03/26/2016 9:33 PM) Component Value Range Anaerobic culture growth No anaerobic organisms isolated Specimen Culture - CSF Lumbar puncture AEROBIC CULTURE, ROUTINE (03/26/2016 9:33 PM) Component Value Range Culture No Growth Gram Stain No organisms observed Gram Stain Rare PMN's Gram Stain Cytospun preparation Specimen Culture - CSF Lumbar puncture URINE MICROSCOPIC (03/26/2016 4:41 PM) Component Value Range White Blood Cells, Urine 3 0-5 /HPF Red Blood Cells, Urine <1 0-2 /HPF Mucous-Urine Rare None, Rare Specimen Urine URINALYSIS (03/26/2016 4:41 PM) Component Value Range Color, Urine Yellow Straw, Pale Yellow, Yellow, Clear, None Clarity, Urine Clear Clear pH, Urine 6.0 <9.0 Glucose, Urine Negative Negative Blood, Urine Negative Negative Ketones, Urine Trace(A) Negative Protein, Urine Negative Negative Urobilinogen, Urine 2+(A) Normal Bilirubin, Urine Negative Negative Leukocyte Esterase, Urine Negative Negative Nitrite, Urine Negative Negative Spec [place], Urine 1.015 1.000-1.030 Specimen Urine ECG - EKG 12 LEAD (03/26/2016 3:12 PM) Component Value Range ECG SEVERITY - ABNORMAL ECG - VENT. RATE 94 bpm RR 638 ms P-R INTERVAL 156 ms QRSD INTERVAL 106 ms QT INTERVAL 328 ms QTC INTERVAL 411 ms P AXIS 30 degrees QRS AXIS 18 degrees T WAVE AXIS 19 degrees REPORT SINUS RHYTHM [Remains] INFERIOR INFARCT, AGE INDETERMINATE [Now Present] THE LARGE Q IN LEAD AVF WAS NOT PRESENT ON THE LAST EKG MAY 27, 2002. NONSPECIFIC T ABNORMALITIES, INF-LAT LEADS THIS T ABNORMALITY IS ALSO NEW. Interpreting Physician: RAMOS PERES MD AMMONIA, PLASMA (03/26/2016 3:07 PM) Component Value Range Plasma Ammonia 28 11-51 mol/L Specimen Blood TROPONIN T (03/26/2016 3:07 PM)Only the most recent of2 resultswithin the time period is included. Component Value Range Troponin-T <0.03 <=0.10 ng/mL Specimen Blood CHEM 7 PANEL (03/26/2016 3:07 PM) Component Value Range Sodium 132(L) 135-145 mEq/L Chloride 92(L) 95-107 mEq/L Potassium 4.8 3.5-5.0 mEq/L CO2 26 22-29 mEq/L BUN 15 10-20 mg/dL Creatinine 0.5(L)Comment: 0.6-1.2 mg/dL Creatinine switched to enzymatic method on 06/27/2010.GFR equation switched to IDMS-traceable MDRD equation on 06/27/2010. Calculated GFR values are not valid in clinical settings where serum creatinine is changing. Glucose 112(H)Comment: 65-99 mg/dL The Expert Committee on the Diagnosis and Classification of Diabetes has defined impaired fasting glucose as greater than or equal to 100 mg/dL but less than 126 mg/dL.(Diabetes Care 28 (Suppl 1)S41,2005) Anion Gap 14 8-18 mEq/L Calculated GFR >90 >60 mL/min/1.[address] BRAIN WO CONTRAST ([id number]) (03/26/2016 3:03 PM)Only the most recent of2 resultswithin the time period is included. Impressions Impression: No acute intracranial findings. Narrative Procedure: CT BRAIN WO CONTRAST ([id number]) Indication: Altered mental status Technique: Axial CT of the brain without IV contrast. Sagittal and coronal reformations are also provided for review. Comparison: 03/18/2016 Findings: There is no evidence of acute large vascular distribution infarct, mass lesion or hemorrhage. The ventricles, cortical sulci and basal cisterns are symmetric and age appropriate. Normal brainstem and posterior fossa. No skull fractures.. Procedure Note Caesar, Incoming Imaging Results - SatMar 26, 2016 4:14 PM JIG MAKER Procedure: CT BRAIN WO CONTRAST ([id number]) Indication: Altered mental status Technique: Axial CT of the brain without IV contrast. Sagittal and coronal reformations are also provided for review. Comparison: 03/18/2016 Findings: There is no evidence of acute large vascular distribution infarct, mass lesion or hemorrhage. The ventricles, cortical sulci and basal cisterns are symmetric and age appropriate. Normal brainstem and posterior fossa. No skull fractures.. IMPRESSION Impression: No acute intracranial findings. FL COOKIE SWALLOW (OPMS) (03/21/2016 1:50 PM) Impressions Impression: Normal OPMS study Please see the speech pathology note for further delineation of these findings and therapeutic recommendations. Narrative Procedure: FL COOKIE SWALLOW (OPMS) Clinical indication: Dysphagia. Technique: Video cookie swallow exam performed in conjunction with speech pathology utilizing various consistencies of barium. Fluoroscopy time: 6 minutes and 43 seconds . Findings: There is good oral bolus formation and delivery with all consistencies. There is mild delay in initiation of the pharyngeal phase. Normal epiglottic inversion. No penetration or aspiration. Good clearance without significant residual. Procedure Note Caesar, Incoming Imaging Results - SatMar 21, 2016 2:04 PM JIG MAKER Procedure: FL COOKIE SWALLOW (OPMS) Clinical indication: Dysphagia. Technique: Video cookie swallow exam performed in conjunction with speech pathology utilizing various consistencies of barium. Fluoroscopy time: 6 minutes and 43 seconds . Findings: There is good oral bolus formation and delivery with all consistencies. There is mild delay in initiation of the pharyngeal phase. Normal epiglottic inversion. No penetration or aspiration. Good clearance without significant residual. IMPRESSION Impression: Normal OPMS study Please see the speech pathology note for further delineation of these findings and therapeutic recommendations. GLUCOSE (03/19/2016 8:06 PM) Component Value Range Glucose 184(H)Comment: 65-99 mg/dL The Expert Committee on the Diagnosis and Classification of Diabetes has defined impaired fasting glucose as greater than or equal to 100 mg/dL but less than 126 mg/dL.(Diabetes Care 28 (Suppl 1)S41,2005) Specimen Blood CREATINE KINASE (03/19/2016 1:49 PM) Component Value Range Creatine Kinase 36(L) 39-308 U/L Specimen Blood LEGIONELLA ANTIGEN - URINE (03/18/2016 6:09 PM) Component Value Range Legionella Urine Antigen NegativeComment: Negative Negative for Legionella pneumophila serogroup 1 antigen. Specimen Urine CHLORIDE-URINE,RANDOM (03/18/2016 10:23 AM) Component Value Range Chloride, Urine, Random 88 mEq/L Specimen Urine OSMOLALITY-URINE (03/18/2016 10:23 AM)Only the most recent of2 resultswithin the time period is included. Component Value Range Osmolality-Urine 572 350-3033 mOsm/k Specimen Urine SODIUM-URINE,RANDOM (03/18/2016 10:23 AM)Only the most recent of2 resultswithin the time period is included. Component Value Range Sodium, Urine, Random 103 mEq/L Specimen Urine CORTISOL, PLASMA (03/18/2016 9:17 AM) Component Value Range Cortisol, Plasma 21.5 g/dL Specimen Blood Narrative Reference ranges: AM (7-10):6.2 - 19.4 g/dL PM (3-5): 2.3 - 11.9 g/dL Cortisol assay has low cross-reactivity with dexamethasone, but other synthetic glucocorticoids may cross-react.Elevated cortisol results on this assay may occur in patients treated with azoles (e.g., ketoconazole) or who have deficiencies in corticosteroid steroid synthesis (e.g., 21-hydroxylase deficiency).See Laboratory Handbook for more details. ([email or web address]) THYROID STIMULATING HORMONE (03/18/2016 9:17 AM)Only the most recent of2 resultswithin the time period is included. Component Value Range TSH 0.54 0.27-4.20 IU/mL Specimen Blood RESPIRATORY VIRUS PCR (03/17/2016 4:31 PM) Component Value Range Adenovirus Not Detected Not Detected Human [place]-Pneumovirus Not Detected Not Detected Influenza A Not Detected Not Detected Influenza B Not Detected Not detected H1N1 Influenza Not Detected Not Detected Parainfluenza 1 Virus Not Detected Not Detected Parainfluenza 2 Virus Not Detected Not Detected Parainfluenza 3 Virus Not Detected Not detected RSV A Not Detected Not Detected RSV B Not Detected Not Detected Specimen Other - Nasopharyngeal swab Narrative Test Methodology:PCR amplification The performance characteristics of this test were determined by the [facility].It has not been cleared or approved by the U.S. Food and DrugAdministration (FDA). The FDA has determined that such clearance or approval is not necessary.This test is for clinical purposes.It should not be regarded as investigational or for research. The laboratory is certified under the Clinical Laboratory Improvement Amendments of 1988 (CLIA) as qualified to perform high complexity clinical laboratory testing. PELVIS LIMITED (03/08/2016 2:33 PM) Impressions Impression: 1. Multiple markedly enlarged right iliac and right inguinal lymph nodes, concerning for lymphoma. These are amenable to ultrasound guided core biopsy. --- Final --- Narrative [facility] Department of Radiology Ultrasound Division [address] [place] [address] ULTRASOUND REPORT NAME:SR. NISA SEPULVEDA Date of Service: 03/08/2016 MRN NO.: [id number] Date: 03/08/2016 Patient's : 1935 Resident/Tech: [id number] Melissa Manley Patient's Age: 80 yearsReferring MD: KATHY PALACIO Indication: Right leg swelling [M79.89]Known to have follicular lymphoma . Swelling of the right lower extremity. Suspected Lymphedema. Large LN palpable in the right inguinal area. Technique: Pelvic grayscale ultrasound. Comparison: CT. 02/28/2016. Findings: Ultrasound of: + + + + :Structure/Organ:Rt Pelvis :Rt upper leg/inguinal area: + + + + :Size :3.1 x 3.5 x 3.6 cm:5.6 x 5.3 x 2.7 cm : + + + + :Shape:Irregular.:Irregular. : + + + + :Echogenicity :Hypoechoic. :Hypoechoic. : + + + + Procedure Note Caesar, Incoming Imaging Results - Dilia Mar 08, 2016 4:49 PM [facility] & [facility] Department of Radiology Ultrasound Division [address] [place] [address] ULTRASOUND REPORT NAME: SR. NISA SEPULVEDA Date of Service: 03/08/2016 MRN NO.: [id number] Review Date: 03/08/2016 Patient's : 1935 [id number] Patient's Age: 80 years Referring MD: KATHY PALACIO Indication: Right leg swelling [M79.89]Known to have follicular lymphoma . Swelling of the right lower extremity. Suspected Lymphedema. Large LNpalpable in the right inguinal area. Technique: Pelvic grayscale ultrasound. Comparison: CT. 02/28/2016. Findings: Ultrasound of: + + + + :Structure/Organ:Rt Pelvis :Rt upper leg/inguinal area: + + + + :Size :3.1 x 3.5 x 3.6 cm:5.6 x 5.3 x 2.7 cm : + + + + :Shape :Irregular. :Irregular. : + + + + :Echogenicity :Hypoechoic. :Hypoechoic. : + + + + IMPRESSION Impression: 1. Multiple markedly enlarged right iliac and right inguinal lymph nodes, concerning for lymphoma. These are amenable to ultrasound guided corebiopsy. --- Final --- VASC LOWER EXT VENOUS DUPLEX (UNILATERAL) (03/07/2016 1:41 PM)CT LARYNX/SOFT TISSUE NECK W CONTRAST ([id number]) (02/28/2016 2:17 PM) Impressions Impression: 1. No evidence of lymphadenopathy. 2. Stable partially calcified left thyroid nodule. This has apparently been worked up with ultrasound in the past. Narrative Procedure: CT LARYNX/SOFT TISSUE NECK W CONTRAST ([id number]) Indication: Follicular lymphoma, assess disease status. Technique: Axial CT of the neck after the uneventful administration of 50 mL of Isovue-370 IV contrast. Sagittal and coronal reformations were also provided for review. Comparison: With the prior chest CT dated 06/19/2011 Findings: There is no evidence of abnormal mass or lymphadenopathy. The submandibular glands are atrophic bilaterally. Left thyroid lobe mass appears essentially stable from prior CT chest. Mild atherosclerotic sclerotic disease is noted in the carotid bifurcations bilaterally. Prominent calcified cervical disc protrusion is noted at C3-4. Procedure Note Caesar, Incoming Imaging Results - Tue Feb 28, 2016 2:40 PM JIG MAKER Procedure: CT LARYNX/SOFT TISSUE NECK W CONTRAST ([id number]) Indication: Follicular lymphoma, assess disease status. Technique: Axial CT of the neck after the uneventful administration of 50 mL of Isovue-370 IV contrast. Sagittal and coronal reformations were also provided for review. Comparison: With the prior chest CT dated 06/19/2011 Findings: There is no evidence of abnormal mass or lymphadenopathy. The submandibular glands are atrophic bilaterally. Left thyroid lobe mass appears essentially stable from prior CT chest. Mild atherosclerotic sclerotic disease is noted in the carotid bifurcations bilaterally. Prominent calcified cervical disc protrusion is noted at C3-4. IMPRESSION Impression: 1. No evidence of lymphadenopathy. 2. Stable partially calcified left thyroid nodule. This has apparently been worked up with ultrasound in the past. CT CHEST ABDOMEN PELVIS W CONTRAST ([id number], [id number]) (02/28/2016 2:16 PM) Impressions Impression: 1. Patient with underlying pulmonary fibrosis/ septal thickening and bronchiectasis as described in the patient's chart. 2. Scattered small pulmonary nodules measuring between 5 mm and 9 mm which are new findings compared to the prior study. Pulmonary nodules may be secondary to lymphoma verus infection. 3. Increase in size of multiple right pelvic lymph nodes and right inguinal lymph nodes compared to the prior study of 05/03/2015. Several field representative/health education measurements as given above. CT findings consistent with recurrentlymphoma 4. Cholelithiasis similar to prior examinations. 5. Coronary artery vascular calcifications with stent present in the right coronary artery.. Narrative Procedure: CT CHEST ABDOMEN PELVIS W CONTRAST ([id number], [id number]) Clinical Indication: History of follicular lymphoma. Assess disease status. Additional history from the chart indicates patient with coronary artery disease with stent placement and history of pulmonary fibrosis. Technique: CT exam of the chest, abdomen, and pelvis is performed following the uneventful administration of 100 cc Isovue-370 IV contrast. Comparison: 05/03/2015 and 04/06/2015 Findings: Neck base and axilla: No lymphadenopathy. Mediastinum and dawna: No lymphadenopathy. Heart and thoracic aorta: Normal. Airway: Patent. Lungs and pleura: There is extensive septal thickening/pleural fibrosis involving the right and left lungs. There is a small nodular lesion measuring 9 mm ((4-95) in the right middle lobe. Additional new pulmonary nodules measuring 5 mm (4-1 05) in the righthilar region and nodular lesion measuring 5 mm (4-1 16) in the left lateral lung. Additional small nodules present in the right and left lungs which were not clearly shown on the previous examination. There is bronchiectasis at the lung bases similar to the previous examination. Esophagus: Normal. Chest wall soft tissues: Normal Liver: Normal enhancement of the liver. Liver measures 18.8 cm. Bile ducts: Not dilated. Gallbladder: Cholelithiasis similar to the prior study Pancreas: Normal Spleen: Spleen measures 13.6 cm. Adrenal glands: Normal Kidneys: Normal Ureters: Normal Bladder: Normal Aorta: Normal Retroperitoneum: No lymphadenopathy. Peritoneum: No ascites. Mesentery: Normal Stomach: Not distended. Small bowel: Not distended. Colon: Not distended. Appendix: Not visualized Extraperitoneal pelvis: Right external iliac artery lymph node measuring 6.4 cm x 3.2 cm which on the previous examination measured 3.0 cm x 1.4 cm. Enlarged right inguinal lymph nodes. Right inguinal lymph node measuring 3.5 cm x 1.5 cm which on the previous examination measured 2.3 cm x 0.9 cm. Additional enlarged right inguinal lymph nodes which have increased in size compared to the prior examination. . Prostate: Generalized prostate enlargement with TURP defect. Abdominal wall: There is mild fat stranding involving the right flank muscles which may extend into the right lower extremity. Right lower extremity subcutaneous edema is a new finding compared to the prior studies. Bones: No acute fracture or destructive bone lesion. Procedure Note Caesar, Incoming Imaging Results - Tue Feb 28, 2016 6:19 PM JIG MAKER Procedure: CT CHEST ABDOMEN PELVIS W CONTRAST ([id number], [id number]) Clinical Indication: History of follicular lymphoma. Assess disease status. Additional history from the chart indicates patient with coronary artery disease with stent placement and history of pulmonary fibrosis. Technique: CT exam of the chest, abdomen, and pelvis is performed following the uneventful administration of 100 cc Isovue-370 IV contrast. Comparison: 05/03/2015 and 04/06/2015 Findings: Neck base and axilla: No lymphadenopathy. Mediastinum and dawna: No lymphadenopathy. Heart and thoracic aorta: Normal. Airway: Patent. Lungs and pleura: There is extensive septal thickening/pleural fibrosis involving the right and left lungs. There is a small nodular lesion measuring 9 mm ((4-95) in the right middle lobe. Additional new pulmonary nodules measuring 5 mm (4-1 05) in the right hilar region and nodular lesion measuring 5 mm (4-1 16) in the left lateral lung. Additional small nodules present in the right and left lungs which were not clearly shown on the previous examination. There is bronchiectasis at the lung bases similar to the previous examination. Esophagus: Normal. Chest wall soft tissues: Normal Liver: Normal enhancement of the liver. Liver measures 18.8 cm. Bile ducts: Not dilated. Gallbladder: Cholelithiasis similar to the prior study Pancreas: Normal Spleen: Spleen measures 13.6 cm. Adrenal glands: Normal Kidneys: Normal Ureters: Normal Bladder: Normal Aorta: Normal Retroperitoneum: No lymphadenopathy. Peritoneum: No ascites. Mesentery: Normal Stomach: Not distended. Small bowel: Not distended. Colon: Not distended. Appendix: Not visualized Extraperitoneal pelvis: Right external iliac artery lymph node measuring 6.4 cm x 3.2 cm which on the previous examination measured 3.0 cm x 1.4 cm. Enlarged right inguinal lymph nodes. Right inguinal lymph node measuring 3.5 cm x 1.5 cm which on the previous examination measured 2.3 cm x 0.9 cm. Additional enlarged right inguinal lymph nodes which have increased in size compared to the prior examination. . Prostate: Generalized prostate enlargement with TURP defect. Abdominal wall: There is mild fat stranding involving the right flank muscles which may extend into the right lower extremity. Right lower extremity subcutaneous edema is a new finding compared to the prior studies. Bones: No acute fracture or destructive bone lesion. IMPRESSION Impression: 1. Patient with underlying pulmonary fibrosis/ septal thickening and bronchiectasis as described in the patient's chart. 2. Scattered small pulmonary nodules measuring between 5 mm and 9 mm which are new findings compared to the prior study. Pulmonary nodules may be secondary to lymphoma verus infection. 3. Increase in size of multiple right pelvic lymph nodes and right inguinal lymph nodes compared to the prior study of 05/03/2015. Several field representative/health education measurements as given above. CT findings consistent with recurrent lymphoma 4. Cholelithiasis similar to prior examinations. 5. Coronary artery vascular calcifications with stent present in the right coronary artery..
[2016-05-18] MEDS ORDERED: ACETAMINOPHEN 325 MG TABLET ONE (21:40)
[2016-05-18 21:52] LABS: Albumin * 2.3 gm/dl (3.4-5.0); Anion Gap 11.8 mmol/L (6.8-13.8); BUN/Creatinine Ratio 18.8 (9.0-21.6); Bilirubin, Total 1.1 mg/dL (0.0-1.1); Ca. Corrected For Albumin 10.2 mg/dL (8.4-10.2); Calcium * 9.2 mg/dL (7.9-10.9); Carbon Dioxide 27.7 mmol/L (24-32.6); Potassium 4.5 mmol/L (3.4-4.6)
--- NOTE | 2016-05-18 21:57 | ERNOTE ---
Medical Problem HPI - Narrative Date of Service: 05/18/16 - General Chief Complaint: Fever Time Seen by Provider: 05/18/16 20:51 - Immun/Allergies/Home Medications Immunizations: IMMUNIZATION HX Immunizations Up to Date Yes History of Influenza Vaccine No Hx Pneumococcal Vaccination No Allergies/Adverse Reactions: Allergies Iodinated Contrast Media - Oral and [Iodinated Contrast Media - IV Dye] Allergy (Mild, Verified 12/08/15 10:37) hives, states can tolerate on skin niacin Allergy (Mild, Verified 12/08/15 10:37) hives, itching ciprofloxacin [From Cipro] Allergy (Unknown, Verified 12/08/15 10:37) ciprofloxacin HCl [From Cipro] Allergy (Unknown, Verified 12/08/15 10:37) furosemide [From Lasix] Adverse Reaction (Mild, Verified 12/08/15 10:37) Hives Home Medications: HOME MEDICATIONS Acetaminophen [Tylenol] 650 mg PO Q6H 05/18/16 [Last Taken Unknown] Aspirin 81 mg PO DAILY 05/18/16 [Last Taken Unknown] Docusate Sodium [Colace Liquid] 10 ml PO BID PRN 05/18/16 [Last Taken Unknown] Finasteride [Proscar] 5 mg PO DAILY 05/18/16 [Last Taken Unknown] Gabapentin 300 mg PO DAILY 05/18/16 [Last Taken Unknown] Hydroxyurea [Hydrea] 500 mg PO Q48H 05/18/16 [Last Taken Unknown] Metoprolol Tartrate 50 mg PO BID 05/18/16 [Last Taken Unknown] Mometasone Furoate [Asmanex] 220 mcg IH BID 05/18/16 [Last Taken Unknown] Nitroglycerin 0.4 mg SL PRN PRN 05/18/16 [Last Taken Unknown] Nystatin 5 ml PO QID PRN 05/18/16 [Last Taken Unknown] Ondansetron HCl [Zofran] 8 mg PO Q8H PRN 05/18/16 [Last Taken Unknown] Pantoprazole Sodium [Protonix] 40 mg PO DAILY 05/18/16 [Last Taken Unknown] Pot Sorbate/Malto/Aloe/Burch Ps [Oramagicrx Oral Rinse] 15 ml MM QID PRN [Last Taken Unknown] Prochlorperazine Maleate [Compazine] 10 mg PO QID PRN 05/18/16 [Last Taken Unknown] Rosuvastatin Calcium [Crestor] 10 mg PO DAILY 05/18/16 [Last Taken Unknown] Sodium Chloride 1 gm PO BID 05/18/16 [Last Taken Unknown] metFORMIN HCL [Glucophage] 1,000 mg PO BIDWM 05/18/16 [Last Taken Unknown] - History of Present History Narrative: PT ADMITTED TO ER BY EMS FOR C/O FEVER 102+ FIRST NOTED AT 2014. WHEN HIS HOME HEALTH NURSE FIRST CAME ON AT 1900 HIS TEMP WAS 101 WHICH HAS BEEN HIS NORM FOR THE PAST 2 MONTHS, EVER SINCE HIS LAST CHEMO FOR HIS 11 YEAR BOUT WITH TREATMENT FOR LYMPHOMA AT THE [facility]. HE APPARENTLY DID NOT TOLERATE THAT LAST DOES WELL AND WAS EVALUATED AT [facility] FOR THE FEVER WITH NO SPECIFIC INFECTION NOTED. ALL CHEMO WAS STOPPED AT THAT POINT THEY FELT HE COULD NOT SURVIVE FURTHER TREATMENT. HE IS ON HOME HEALTH CARE BUT NOT HOSPICE CARE THOUGH THE SAYS SHE UNDERSTANDS HE HAS A POOR PROGNOSIS. TODAY HE DID HAVE A SMALL FALL AFTER AWAKENING BUT DID NOT GET INJURED. HE DAY NURSE ARRANGED FOR OUTPATIENT BLOOD WORK TO BE DONE BY HIS PCP WHOM THEY HAVE NOT SEEN SINCE DEC 2015. THEY DID NOT KNOW THE RESULTS BUT UPON CHECKING HERE HE HAD WBC OF 5.6 WITH HGB OF 9.2 AND OTHER BECKER UNREMARKABLE CBC AND CMP. FOR THE PAST 2 MONTHS HE HAS BEEN LIVING WITH TEMPS OF 101 BELIEVED TO BE SECONDARY TO HIS LYMPHOMA. 2 WEEKS AGO HIS [facility] ONCOLOGIST, DR. JACOBSEN , INCREASED HIS CONCERNING FEVER PARAMETER TO GREATER THAN 102. THE AND NURSE SAY THAT HE IS OTHER BECKER HIS NORMAL SELF WITH A MILD TO MODERATE DEGREE OF CONFUSION AND NOT OBVIOUS COMPLAINTS. HE DID HAVE A LITTLE LOOSE COUGH THIS AM WHICH IS NOT AN UNUSUAL OCCURRENCE HE ALSO HAS PULMONARY FIBROSIS. HIS NURSE SAYS THAT HE THOUGHT HIS BREATH SOUNDS ARE MAYBE A LITTLE MORE COARSE TODAY THAN USUAL. Timing: constant Severity: moderate Modifying Factors - (Improves): Present: medication - HE GETS ROUTINE APAP, 650 MG AT 1000 AND 1600 DAILY Review of Systems - Review of Systems Constitutional: Present: See HPI, fever EYE: Present: no symptoms reported ENT: Present: no symptoms reported Respiratory: Present: See HPI Cardiology: Present: no symptoms reported Gastrointestinal/Abdominal: Present: no symptoms reported Genitourinary: Present: no symptoms reported Musculoskeletal: Present: no symptoms reported Skin: Present: no symptoms reported Neurological: Present: no symptoms reported Endocrine: Present: no symptoms reported Hematologic/Lymphatic: Present: no symptoms reported Psych: Present: no symptoms reported All Other Systems: All systems neg except as marked - Patient's Past Medical History Patient History - Medical: Diabetes Type 2 Patient History - Cardiac/Respiratory: Coronary Heart Disease, Hypertension, Hyperlipidemia, Myocardial Infarction Patient History - Cancer: Lymphoma, Chemotherapy history, Other Patient History - Surgical Procedures: Appendectomy, Cholecystectomy, Cardiac stent, Total Knee Replacement Patient History - Other: None - Family History Mother Family History - Medical: , No pertinent hx Family History - Cardiac/Respiratory: No pertinent hx Father Family History - Medical: Brother Family History - Medical: No pertinent hx Sister Family History - Medical: - Social History Living Situations: home - WITH AND HOME HEALTH NURSE. Abuse History: No History of abuse Psych History: No pertinent hx Does anyone smoke in the home?: No Smoking Status: Former smoker - AND HE WORKED IN [employer] FOR YEARS. Alcohol Use: none Drug Use: none - Immunizations Immunizations Up to Date: Yes Hx Pneumococcal Vaccination: No History of Influenza Vaccine: No Physical Exam - Physical Exam General Appearance: Present: alert, no apparent distress, other - PT WITH FLUCHED FACIES AND FEVER. HE HAS FLAT AFFECT AND BARELY SPEAKS THOUGH UNDERSTANDS . CAN ANSWER PRESIDENT AND MONTH BUT NOT DATE OR YEAR OR WHERE HE IS. Eye Exam: Normal inspection: bilateral, PERRL: bilateral, EOMI: bilateral Ears, Nose, Throat: Present: normal ENT inspection, normal pharynx Neck: Present: normal inspection, nontender Respiratory: Present: no respiratory distress, no accessory muscle use, chest nontender, rales - BILATERAL RALES , FEWER IN LLL AND COARSER AND MORE PRONOUNCED IN RLL. Cardiovascular/Chest: Present: regular rate, rhythm, no murmur, normal peripheral pulses - THOUGH IS DIFFICULT TO PALPATE RIGHT LOWERS DUE TO CHRONIC LYMPHEDEMA OF LEFT LEG THAT NURSE REPORTS IS UNCHANGED FROM HIS NORMAL Gastrointestinal/Abdominal: Present: normal bowel sounds, nontender, nondistended, soft, no organomegaly Back Exam: Present: normal inspection, normal range of motion, no CVA tenderness , no vertebral tenderness Extremity Exam: Present: normal except - - EDEMATOUS RIGHT LOWER EXTREMITY WITH PITTING EDEMA FROM HIP DISTALLY. Neurological Exam: Present: motor weakness - GENERALIZED WEAKNESS , BARELY HELPING HIMSELF TO SIT, NURSE REPORTS HE USUALLY GIVES MORE EFFORT TO HELP HIMSELF. , disoriented to time, disoriented to place. Absent: center sales and service associate II-XII nml as tested, facial droop Skin Exam: Present: warm/dry - FLUSHED FACIES. Lymphatic Exam: Present: no adenopathy ED Progress - Results and Orders Patient's Lab Results:: I have reviewed the patient's lab results. Results and Orders: WBC RELATIVEL UNCHANGED FROM THIS A.M. IS THE HGB. CHEMISTRIES WITH NA+ 130 , ELEVATED ALK. PHOS AND ELEVATED LACTIC ACID. URINE STILL PENDING. - Vital Signs Vital Signs: Vital Signs 05/18/16 20:48 Temperature 39.2 C H Pulse Rate 115 H Respiratory 18 Rate Blood Pressure 133/68 O2 Sat by Pulse 92 Oximetry - X-Ray X-Ray #1 X-Ray: chest - CHRONIC INTERSTIAL LUNG DISEASE WITH MORE MEDIASTINAL NODULAR APPEARANCE THAN LAST OCT 2015 CXR. - Progress/Reassessment Chief Complaint: Fever Plan - Plan Plan: D/W DR KNIGHT, HOSPITALIST, AND SHE WILL ACCEPT HIM ADMIT TO THE FLOOR. Departure - Departure Clinical Impression: Sepsis Qualifiers: Sepsis type: sepsis due to unspecified organism Qualified Code(s): A41.9 - Sepsis, unspecified organism Disposition: [facility] Condition: Serious Referrals: Isabella Blakely MD [Primary Care Provider] -
[2016-05-18] MEDS ORDERED: VANCOMYCIN HCL 1 GM in DEXTROSE 5 % IN WATER 250 ML IV ONE ×2 (21:58)
[2016-05-18 22:32] LABS: Urine Bilirubin Negative (NEGATIVE); Urine Blood Negative /ul (NEGATIVE); Urine Ketone Negative (NEGATIVE); Urine Nitrite Negative (NEGATIVE); Urine Protein Negative (NEGATIVE); Urine Specific Gravity 1.015 SP.GR. (1.005-1.030); Urine Urobilinogen >=8.0 EU/dl (NORMAL)
[2016-05-18 22:40] LABS: Urine Appearance Clear; Urine Bacteria TRACE; Urine Color Yellow; Urine RBC 0-5 /hpf (0-5); Urine WBC 0-5 /hpf (0-5)
--- OUTSIDE RECORDS SUMMARY | 2016-05-18 22:51 | XMS REPORT | Continuity of Care Document ---
:1935 Author Organization [facility] ([facility]) Address [address] [place] [address] Phone [phone] Care Team Providers Name Role Phone Isabella Blakely Primary Care Provider [phone] Source Comments This disclosure is being made pursuant to the Care Everywhere program, applicable federal and state laws, and may not contain all informaitonavailable regarding this patient.[facility] ([facility]) Active Allergies and Adverse Reactions Allergen [...] Stent to the RCA 2002. Acute inferior [place] Coronary artery disease Overview: Formatting of this note may be different from the original. 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 Shaylee Otero Chief Comp: Error Encounter R 04/24/2016 Pharmacy Visit 04/24/2016 Telephone Emergency Medicine Carmen Jaffe Chief Comp: Veronica Mancini MD 04/22/2016 Hospital Emergency Medicine Cristino Berman Dx: Fever in other Encounter MD Rolo diseases (Primary Dx) 04/22/2016 Telephone Med Hematology and Lebron Golden MD Chief Comp: Fever Oncology 04/19/2016 Telephone Cancer [place] Leslie, Chief Comp: Ngozi Henning RN Follow-up 04/16/2016 Telephone Cancer [place] Margo May, Chief Comp: Other RN 04/12/2016 [...] production) (Primary MD Dx) 04/10/2016 Telephone Cancer [place] Laina Ivory Chief Comp: Follow-up 04/09/2016 Telephone Allison, Chief Comp: Orders Oncology Toshia A (to arrange test locally) 04/06/2016 Telephone Cancer [place] Nadia, Chief Comp: Other Bernarda A 04/04/2016 Office Visit Med Hematology and Baldo Dukes, Chief Comp: Patient Oncology Reported Reason For Visit 04/03/2016 Hospital Cancer Infusion Baldo Dukes, Chief Comp: Patient Encounter Center Reported Reason For Visit 04/03/2016 Office Visit Med Hematology and Baldo Dukes, Dx: Follicular Oncology lymphoma (Primary Dx) 04/01/2016 Pharmacy Visit 03/29/2016 [facility] Neurology Rodriguez Reagan, Chief Comp: Patient Encounter Reported Reason For Visit 03/28/2016 Office Visit Family Practice Default, Other Chief Comp: Patient Billg - Defo Reported Reason For Kathy Palacio, Bebe HORTON 03/28/2016 Hospital Neurology Rodriguez Reagan, Chief Comp: Patient Encounter Reported Reason For Visit 03/27/2016 Hospital Neurology Rodriguez Reagan, Chief Comp: Patient Encounter Reported Reason For Visit 03/26/2016 - [facility] Ahmed, Dx: Altered mental 04/01/2016 Encounter Inpatient - Adult MD [place] status, unspecified Kathryn Vail altered mental MD Bruce status type (Primary Dx) 03/26/2016 Telephone Cancer Center Shaylee Otero Chief Comp: R Follow-up 03/26/2016 Telephone [facility] Reddy, Chief Comp: Medical Roseller Update 03/24/2016 Telephone Med Hematology and Saqlain, Chief Comp: Advice Oncology Arnold Estrada MD Only 03/24/2016 Telephone Med Hematology and Saqlain, Chief Comp: Patient Oncology Arnold Estrada MD Concern 03/23/2016 Telephone Cancer Center Goldy Martin Chief Comp: Vikash Barrera RN Medications/orders 03/21/2016 Office Visit [facility] Default, Other Chief Comp: Patient Billg - Defo Reported Reason For Kathy Palacio, Bebe HORTON 03/21/2016 Telephone Med Hematology and Ning Mendoza Chief Comp: Other Oncology 03/21/2016 Pharmacy Visit 03/21/2016 Telephone Cancer Center Laina Ivory Chief Comp: Forms and Letters Requests 03/19/2016 Refill Cancer Center Margo May, Chief Comp: retail store clerk Problem 03/17/2016 - [facility] Charissa Arguello, Dx: Fever, 03/21/2016 Encounter Inpatient [...] Telephone Srg GI Kathy Palacio MD 03/08/2016 [facility] Radiology Evan, Dx: Right leg Encounter Guillermina Seth MD swelling 03/07/2016 Office Visit Sr Vascular Marline, Dx: Right leg MD Micky swelling 03/07/2016 [facility] Heart and Vascular Marline, Chief Comp: Patient Encounter MD Micky Reported Reason For Visit 03/07/2016 Office Visit [facility] Default, Other Dx: Right leg Billg - Defo swelling (Primary Thayer-Stoelzle, Dx) MD Lalo Turk Alka C, MD 03/07/2016 Telephone [facility] Reddy, Chief Comp: Isabella Follow-up 03/02/2016 Telephone Cancer Center Sugey Miguel Chief Comp: Other 03/01/2016 Telephone Cancer Center Laina Ivory Chief Comp: Other 02/28/2016 Office Visit Med Hematology and Baldo Dukes, Dx: Follicular Oncology lymphoma (Primary Dx) 02/28/2016 [facility] Radiology Rikki Ambrose Dx: Follicular Encounter MD Bruce lymphoma 02/28/2016 [facility] Radiology Pita Daniel, Dx: Follicular [...] Taken Blood Pressure 123/59 04/24/2016 7:42 AM EQUIPMENT OPERATOR WAREHOUSE Pulse 86 04/24/2016 7:42 AM EQUIPMENT OPERATOR [employer]AREHOUSE Temperature 36.9 C (98.4 F) 04/24/2016 7:42 AM EQUIPMENT OPERATOR WAREHOUSE Respiratory Rate 16 04/24/2016 7:42 AM EQUIPMENT OPERATOR [employer]AREHOUSE Height 1.62 m (5' 3.78") 04/24/2016 7:42 AM EQUIPMENT OPERATOR WAREHOUSE Weight 67.6 kg (149 lb 0.5 oz) 04/24/2016 7:42 AM EQUIPMENT OPERATOR [employer]AREHOUSE Body Mass Index 25.76 04/24/2016 7:42 AM EQUIPMENT OPERATOR WAREHOUSE Oxygen Saturation 96% 04/24/2016 7:42 AM EQUIPMENT OPERATOR WAREHOUSE Plan of Care Date Type Specialty Providers Description 06/05/2016 Appointment Med Hematology and LinkBaldo MD Chief Comp: Patient Oncology [address] [place] [address] Visit [phone] (Fax) 07/31/2016 Appointment Heart and Vascular CarlosChelle MD Chief Comp: Patient [address] [place] [address] Visit [phone] (Fax) Health Maintenance Due Date Last Done [...] 11:36 AM Altered mental Results for this EQUIPMENT OPERATOR WAREHOUSE status, unspecified procedure are in altered mental [...] % Manual Neutrophils 78.3 % Neutrophils-Manual 5103 5060-2678 /MM3 % Manual Lymphocytes 6.1 % Lymphocytes-Manual [...] Abnormality Status --------- ------ CBC (COMPLETE BLOOD COUNT)[[id number]] AbnormalFinal result DIFFERENTIAL[[id number]] AbnormalFinal result Please view results for these [...] Clear Clear pH, Urine 5.0 <9.0 Spec Pitman, Urine 1.020 1.000-1.030 Glucose, Urine Negative Negative [...] Abnormality Status --------- ------ URINALYSIS WITH REFLEX C...[[id number]]AbnormalFinal result MICROSCOPIC URINALYSIS[[id number]] Normal Final result URINE CULTURE, REFLEXED[[id number]]Normal Final result Please view results for these [...] - Sun Apr 22, 2016 11:30 PM EQUIPMENT OPERATOR WAREHOUSE Procedure: CHEST- PA & LATERAL Clinical Indication: [...] were determined by the [facility].It has not been cleared orApproved by [...] - Sun Apr 01, 2016 1:19 AM EQUIPMENT OPERATOR WAREHOUSE Procedure: CHEST - AP/PA Technique: Portable AP [...] PM) Component Value Range Blood Coding System [id number] Blood Product Volume 325 Blood Product ABORH O Pos Blood Unit Number [id number] BLOOD DISPENSE STATUS ISS Blood Product Type Red Blood Cells Blood Product Code [id number] ENDOSCOPY COLONOSCOPY& ENDOSCOPY UPPER (03/30/2016 12:28 PM) [...] embolization. Anjel Ahuja MD Gastroenterology/Hepatology Fellow Pager#: [phone] Teaching Statement: Dr. Aj Griffin was present for the entire procedure. Gerry Eli MD Clinical Armed Custom Protection Officer Department of Internal Medicine Division of Gastroenterology and Hepatology [address] [place] [address] Fax [email or web address] EXTRA PST TUBE (03/29/2016 10:37 [...] MD of the Neurology Consult Service (pager [phone]).Recording continues. Staff Involved Staff Only Rodriguez Reagan [...] - Blood, Venipuncture MRI BRAIN W/WO CONTRAST ([id number]) (03/27/2016 9:50 PM) Impressions Impression: 1. No evidence of intracranial lymphoma. 2. No acute intracranial findings. This final report is in agreement with the critical and emergent preliminary findings reported by the radiology technologist conference assistant. Narrative Procedure: MRI BRAIN W/WO CONTRAST ([id number]) Indication: Evaluate for FUEL CELL TECHNICIAN lymphoma Technique: Multisequence, multiplanar MRI of the [...] Results - SatMar 28, 2016 12:55 PM EQUIPMENT OPERATOR [employer]AREHOUSE Procedure: MRI BRAIN W/WO CONTRAST ([id number]) Indication: Evaluate for FUEL CELL TECHNICIAN lymphoma Technique: Multisequence, multiplanar MRI of the [...] emergent preliminary findings reported by the radiology technologist conference assistant. MRI CERVICAL, THORACIC& LUMBAR SPINE W/WO CONTRAST ([id number]) (2016 9:43 PM) Impressions Impression: 1. No evidence of FUEL CELL TECHNICIAN lymphoma 2. 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 Narrative Procedure:MRI CERVICAL, THORACIC & LUMBAR SPINE W/WO CONTRAST ([id number]) Indication: Evaluate for FUEL CELL TECHNICIAN lymphoma Technique: Multisequence, multiplanar MRI of the [...] Results - SatMar 28, 2016 12:55 PM EQUIPMENT OPERATOR WAREHOUSE Procedure:MRI CERVICAL, THORACIC & LUMBAR SPINE W/WO CONTRAST ([id number]) Indication: Evaluate for FUEL CELL TECHNICIAN lymphoma Technique: Multisequence, multiplanar MRI of the [...] lymphoma. IMPRESSION Impression: 1. No evidence of FUEL CELL TECHNICIAN lymphoma 2. 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 LUMBAR PUNCTURE (03/27/2016 11:36 AM) Narrative Virginia Jeff MD 03/27/2016 11:36 AM Lumbar Puncture Procedure Note Procedure Date:03/26/2016 Attending Staff: [place] Jeff MD Resident/Fellow/PA/FLORIST: Cristino Radford MD Indication:Emergent evaluation for FUEL CELL TECHNICIAN infection or bleeding This procedure was performed [...] MD, JOSELYN Clinical Professor of Emergency Medicine [facility] Department of Emergency Medicine FLOW CYTOMETRY ANALYSIS, [...] characteristics determined by the [facility]. They are included among the group of [...] developed and its performance characteristics determined by [facility] in a manner consistent with CLIA requirements. This test has not been cleared or approved by the U.S. Food and Drug Administration. Specimen Cerebrospinal fluid Narrative Test Performed by: [facility] [place] [address] Stevedoring Supervisor: Blas Fung II, M.D., Ph.D. CSF CYTOSPIN [...] used for Flow Cytometry Analysis, Other. Order #[id number] CSF CELL COUNT AND DIFF (03/26/2016 9:33 [...] fully rule out cryptococcal meningitis; Cryptococcus antigen (Pirq [id number]) may be ordered if rapid testing is desired. Enterovirus testing includes Coxsackievirus A/B, Echovirus, and Enterovirus, including EV-D68, EV-D70 and EV-D71. Bacterial culture, Gram stain and susceptibility testing are always performed with this order. Pretreatment may result in a PCR-positive, culture negative result. Test method: PCR Amplification; Sk[employer] ME Panel ([employer]) ANAEROBIC CULTURE (03/26/2016 9:33 PM) Component Value [...] Negative Negative Nitrite, Urine Negative Negative Spec Pitman, Urine 1.015 1.000-1.030 Specimen Urine ECG - [...] m[address] BRAIN WO CONTRAST ([id number]) (03/26/2016 3:03 PM)Only the most recent of2 resultswithin the time period is included. Impressions Impression: No acute intracranial findings. Narrative Procedure: CT BRAIN WO CONTRAST ([id number]) Indication: Altered mental status Technique: Axial CT [...] Results - SatMar 26, 2016 4:14 PM EQUIPMENT OPERATOR WAREHOUSE Procedure: CT BRAIN WO CONTRAST ([id number]) Indication: Altered mental status Technique: Axial CT [...] Results - SatMar 21, 2016 2:04 PM EQUIPMENT OPERATOR WAREHOUSE Procedure: FL COOKIE SWALLOW (OPMS) Clinical indication: [...] period is included. 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 (http://[email or web address].[facility]/path_handbook/index.html) THYROID STIMULATING HORMONE (03/18/2016 9:17 AM)Only the most recent of2 resultswithin the time period is included. Component Value Range TSH 0.54 0.27-4.20 IU/mL Specimen Blood RESPIRATORY VIRUS PCR (03/17/2016 4:31 PM) Component Value Range Adenovirus Not Detected Not Detected Human [place]-Pneumovirus Not Detected Not Detected Influenza A Not [...] of this test were determined by the [facility].It has not [...] guided core biopsy. --- Final --- Narrative [facility] Department of Radiology Ultrasound Division [address] [place] [address] ULTRASOUND REPORT NAME:SR. NISA SEPULVEDA Date of Service: 03/08/2016 MRN NO.: [id number] Date: 03/08/2016 Patient's : 1935 Resident/Tech: [id number] [...] - Dilia Mar 08, 2016 4:49 PM [facility] Department of Radiology Ultrasound Division [address] [place] [address] ULTRASOUND REPORT NAME: SR. NISA SEPULVEDA Date of Service: 03/08/2016 MRN NO.: [id number] Review Date: 03/08/2016 Patient's : 1935 [id number] Patient's Age: 80 years Referring [...] 1:41 PM)CT LARYNX/SOFT TISSUE NECK W CONTRAST ([id number]) (02/28/2016 2:17 PM) Impressions Impression: 1. No evidence of lymphadenopathy. 2. Stable partially calcified left thyroid nodule. This has apparently been worked up with ultrasound in the past. Narrative Procedure: CT LARYNX/SOFT TISSUE NECK W CONTRAST ([id number]) Indication: Follicular lymphoma, assess disease status. Technique: [...] - Tue Feb 28, 2016 2:40 PM EQUIPMENT OPERATOR WAREHOUSE Procedure: CT LARYNX/SOFT TISSUE NECK W CONTRAST ([id number]) Indication: Follicular lymphoma, assess disease status. Technique: [...] past. CT CHEST ABDOMEN PELVIS W CONTRAST ([id number], [id number]) (02/28/2016 2:16 PM) Impressions Impression: 1. Patient [...] to the prior study of 05/03/2015. Several credit and collections representative measurements as given above. CT findings consistent with recurrentlymphoma 4. Cholelithiasis similar to prior examinations. 5. Coronary artery vascular calcifications with stent present in the right coronary artery.. Narrative Procedure: CT CHEST ABDOMEN PELVIS W CONTRAST ([id number], [id number]) Clinical Indication: History of follicular lymphoma. Assess [...] - Tue Feb 28, 2016 6:19 PM EQUIPMENT OPERATOR WAREHOUSE Procedure: CT CHEST ABDOMEN PELVIS W CONTRAST ([id number], [id number]) Clinical Indication: History of follicular lymphoma. Assess [...] to the prior study of 05/03/2015. Several credit and collections representative measurements as given above. CT findings consistent with recurrent lymphoma 4. Cholelithiasis similar to prior examinations. 5. Coronary artery vascular calcifications with stent present in the right coronary artery..
--- NOTE | 2016-05-19 00:56 | HP ---
<Elver Lopez - Last Filed: 05/19/16 03:59> Chief Complaint - Chief Complaint Date of Service: 05/18/16 Time of Service: 22:45 Chief Complaint: Fever History of Present Illness: 80 years old male adm to the hospital from home with reports of elevated temp. PMH significant for pulmonary fibrosis,Right leg lymphedema, lymphoma ( pt refused to continue with chemotherapy 2 months ago elected palliative care), hypertension, diabetes, and anemia. Per family and (POA) pt was in [place] getting chemotherapy but was unable to tolerate and refused to continue with treatment and elected palliative care. Since he stopped chemotherapy he had a fever and Oncologist adjust fever parameter, if pt have fever of 102 or above to go to the ER. Overnight was the first time he had a temp spike greater than his usual baseline. Family want pt to be adm for comfort care. In ER WBC 5.6, hgb 9.1, Na+ 130, Lactic acid 3.5, he was given Iv antbx in ER and IVF resuscitation. plan of care discussed with family and POA via phone they verbalized understanding and agree. - Patient's Past Medical History Patient History - Medical: Anemia, Diabetes Type 2, Other - urinary retention, pulmonary fibrosis Patient History - Cardiac/Respiratory: Coronary Heart Disease, Hypertension, Hyperlipidemia, Myocardial Infarction, CPAP/BiPAP Home Use Patient History - Cancer: Lung - fibrosis, Lymphoma, Chemotherapy history - pt stopped 2 months ago and requested pallative care, Other Patient History - Surgical Procedures: Appendectomy, Cholecystectomy, Cardiac stent, Total Knee Replacement - right knee Patient History - Other: None - Family History Mother Family History - Medical: , No pertinent hx Family History - Cardiac/Respiratory: No pertinent hx Father Family History - Medical: Brother Family History - Medical: No pertinent hx Family History - Cancer: Stomach Sister Family History - Medical: - Social History Living Situations: spouse Abuse History: No History of abuse Psych History: No pertinent hx Does anyone smoke in the home?: No Smoking Status: Former smoker Have you smoked in the past 12 months: No Do you dip or chew tobacco: No Smoking Start Date: 02/18/1949 Smoking Stop Date: 02/18/79 Patient requests Smoking Cessation Consult: No Initiate information on Smoking Cessation: No Alcohol Use: none Drug Use: none - Immunizations Immunizations Up to Date: Yes Hx Pneumococcal Vaccination: No History of Influenza Vaccine: No Review Of Systems (GEN) - Review of Systems Generalized/Overall Review: Present: Weakness EENTM: Present: No Symptoms Reported Respiratory: Present: Shortness of Breath, Wheezing Cardiac: Present: No Symptoms Reported Abdominal: Present: No Symptoms Reported Genitourinary: Present: Incontinent Musculoskeletal: Present: Other - right leg lymphedema Neurological: Present: Depressed Skin: Present: No Symptoms Reported Endocrine: Present: No Symptoms Reported Allergies/Adverse Reactions: Allergies Allergy/AdvReac Type Severity Reaction Status Date / Time Iodinated Contrast Media - Allergy Mild hives, Verified 12/08/15 10:37 Oral and states can [Iodinated Contrast Media - tolerate IV Dye] on skin niacin Allergy Mild hives, Verified 12/08/15 10:37 itching ciprofloxacin [From Cipro] Allergy Unknown Verified 12/08/15 10:37 ciprofloxacin HCl Allergy Unknown Verified 12/08/15 10:37 [From Cipro] furosemide [From Lasix] AdvReac Mild Hives Verified 12/08/15 10:37 Home Medications: HOME MEDICATIONS Acetaminophen [Tylenol] 650 mg PO Q6H 05/18/16 [Last Taken Unknown] Aspirin 81 mg PO DAILY 05/18/16 [Last Taken Unknown] Docusate Sodium [Colace Liquid] 10 ml PO BID PRN 05/18/16 [Last Taken Unknown] Finasteride [Proscar] 5 mg PO DAILY 05/18/16 [Last Taken Unknown] Gabapentin 300 mg PO DAILY 05/18/16 [Last Taken Unknown] Hydroxyurea [Hydrea] 500 mg PO Q48H 05/18/16 [Last Taken Unknown] Metoprolol Tartrate 50 mg PO BID 05/18/16 [Last Taken Unknown] Mometasone Furoate [Asmanex] 220 mcg IH BID 05/18/16 [Last Taken Unknown] Nitroglycerin 0.4 mg SL PRN PRN 05/18/16 [Last Taken Unknown] Nystatin 5 ml PO QID PRN 05/18/16 [Last Taken Unknown] Ondansetron HCl [Zofran] 8 mg PO Q8H PRN 05/18/16 [Last Taken Unknown] Pantoprazole Sodium [Protonix] 40 mg PO DAILY 05/18/16 [Last Taken Unknown] Prochlorperazine Maleate [Compazine] 10 mg PO QID PRN 05/18/16 [Last Taken Unknown] Rosuvastatin Calcium [Crestor] 10 mg PO DAILY 05/18/16 [Last Taken Unknown] Sodium Chloride 1 gm PO BID 05/18/16 [Last Taken Unknown] metFORMIN HCL [Glucophage] 1,000 mg PO BIDWM 05/18/16 [Last Taken Unknown] Clotrimazole/Betamethasone Dip [Clotrimazole-Betamethasone Crm] 1 gm TP BID 03/06 [Last Taken Unknown] Hydroxyurea [Hydrea] 500 mg PO Q48H 05/19/16 [Last Taken Unknown] Sennosides [Senna] 5 ml PO PRN 05/19/16 [Last Taken Unknown] Exam - Exam Vital Signs: Vital Signs - Last Taken Temp 37.6 C H 05/18/16 22:59 Pulse 103 H 05/18/16 22:59 Resp 24 H 05/18/16 22:59 BP 132/57 05/18/16 22:59 Pulse Ox 92 05/18/16 22:59 Constitutional: Present: Alert, Cooperative, No distress, Lethargic, Elderly, Looks Older than stated age Eye Exam: bilateral eye: scleral icterus Neck: Present: full range of motion Back Exam: Present: no CVA tenderness Breasts: Present: Exam deferred Respiratory: Present: no respiratory distress, rhonchi Cardiovascular/Chest: Present: normal peripheral pulses, no chest tenderness, tachycardia Peripheral Pulses: dorsalis-pedis (R): 1+, dorsalis-pedis (L): 3+ Abdomen: Present: Normal bowel sounds, soft, nontender, nondistended /Rectal: Present: Exam deferred Extremity: Present: normal range of motion, non-tender, normal inspection, lower extremity edema - right leg, pedal edema - right leg/foot, slow capillary refill - right pedal, swelling Skin Exam: Present: normal color, warm/dry, no cyanosis Neurologic: Present: oriented x 3 Appearance: Present: impaired insight, impaired recent memory Eye contact: Present: cooperative, good eye contact Thoughts: Present: no apparent hallucination Diagnostic Studies: Laboratory Results WBC 5.9 K/mm3 (4.0-10.5) 05/18/16 21:15 RBC 3.40 M/mm3 (4.7-6.0) L 05/18/16 21:15 Hgb 9.1 gm/dL (13.5-18.0) L 05/18/16 21:15 Hct 29.8 % (42.0-52.0) L 05/18/16 21:15 MCV 87.6 fl (78-100) 05/18/16 21:15 MCH 26.8 pg (27-31) L 05/18/16 21:15 MCHC 30.5 g/dl (32-36) L 05/18/16 21:15 RDW 19.7 % (11.5-14.0) H 05/18/16 21:15 Plt Count 255 K/mm3 (150-450) 05/18/16 21:15 MPV 10.5 fl (6.0-9.5) H 05/18/16 21:15 Immature Gran % (Auto) 0.70 % (0.001-0.429) H 05/18/16 21:15 Immature Gran # (Auto) 0.04 K/mm3 (0.000-0.0310) H 05/18/16 21:15 Neutrophils % 65.6 % (42-75.0) 05/18/16 21:15 Lymphocytes % 19.2 % (20-51) L 05/18/16 21:15 Monocytes % 14.3 % (0.0-9) H 05/18/16 21:15 Eosinophils % 0.0 % (0.0-3.0) 05/18/16 21:15 Basophils % 0.2 % (0.0-1.0) 05/18/16 21:15 Nucleated RBC % 0.0 k/mm3 (0-1) 05/18/16 21:15 Neutrophils # 3.9 K/mm3 (1.3-6.0) 05/18/16 21:15 Lymphocytes # 1.1 k/mm3 (1.5-3.5) L 05/18/16 21:15 Monocytes # 0.8 k/mm3 (0.0-1.0) 05/18/16 21:15 Eosinophils # 0.0 k/mm3 (0.0-0.7) 05/18/16 21:15 Absolute Basophils 0.0 k/mm3 (0.0-0.1) 05/18/16 21:15 Sodium 130 mmol/L (132-142) L 05/18/16 21:15 Plasma Sodium 131 mmol/L (130-142) 05/18/16 21:15 Potassium 4.5 mmol/L (3.4-4.6) 05/18/16 21:15 Chloride 95 mmol/L (97-106) L 05/18/16 21:15 Carbon Dioxide 27.7 mmol/L (24-32.6) 05/18/16 21:15 Anion Gap 11.8 mmol/L (6.8-13.8) 05/18/16 21:15 BUN 12 mg/dL (6-23) 05/18/16 21:15 Creatinine 0.64 mg/dL (0.4-1.4) 05/18/16 21:15 Est GFR (Non-Af Amer) 128 mL/min (60-130) 05/18/16 21:15 BUN/Creatinine Ratio 18.8 (9.0-21.6) 05/18/16 21:15 Random Glucose 139 mg/dL (70-110) H D 05/18/16 21:15 Lactic Acid, Venous 3.5 mmol/L (0.4-2.0) H* 05/18/16 21:15 Calcium 9.2 mg/dL (7.9-10.9) 05/18/16 21:15 Calcium Adj for Albumin 10.2 mg/dL (8.4-10.2) 05/18/16 21:15 Total Bilirubin 1.1 mg/dL (0.0-1.1) 05/18/16 21:15 AST 72 U/L (0-48) H 05/18/16 21:15 ALT 51 U/L (19-67) 05/18/16 21:15 Alkaline Phosphatase 1328 U/L (50-170) H 05/18/16 21:15 Total Protein 6.0 gm/dL (6.2-8.2) L 05/18/16 21:15 Albumin 2.3 gm/dl (3.4-5.0) L 05/18/16 21:15 Urine Color Yellow 05/18/16 22:20 Urine Appearance Clear 05/18/16 22:20 Urine pH 6.0 pH (5.0-7.0) 05/18/16 22:20 Ur Specific [place] 1.015 SP.GR. (1.005-1.030) 05/18/16 22:20 Urine Protein Negative mg/dL (NEGATIVE) 05/18/16 22:20 Urine Glucose (UA) Negative mg/dL (NEGATIVE) 05/18/16 22:20 Urine Ketones Negative mg/dL (NEGATIVE) 05/18/16 22:20 Urine Blood Negative /ul (NEGATIVE) 05/18/16 22:20 Urine Nitrate Negative (NEGATIVE) 05/18/16 22:20 Urine Bilirubin Negative mg/dl (NEGATIVE) 05/18/16 22:20 Urine Urobilinogen >=8.0 EU/dl (NORMAL) H 05/18/16 22:20 Ur Leukocyte Esterase Negative /ul (NEGATIVE) 05/18/16 22:20 Urine RBC 0-5 /hpf (0-5) 05/18/16 22:20 Urine WBC 0-5 /hpf (0-5) 05/18/16 22:20 Ur Epithelial Cells 5-10 /hpf (0-5) H 05/18/16 22:20 Urine Bacteria Trace (NONE) 05/18/16 22:20 Urine Culture Comments No culture indicated 05/18/16 22:20 Assessment/Plan - Narrative Narrative: Fever- possible idiopathic vs immuno-compromised from chemotherapy. Pt was hospitalized at [facility] [place] where he was worked up for fever. Pt had fever for several months and Oncologist had adjusted parameters to temp 102 to visit the ER overnight while at home he spiked temp to 102.1 and was brought to the hospital , pt and family want only comfort measures, pt was getting palliative care at home. Blood cultures pending Urinalysis noted Sepsis vs SIRs vs reaction to chemotherapy On adm temp 37.6, BP 132/57, HR Lactic acid 3.5---->2.6 after bolus given in ER. WBC 5.6 Will continue with IVF and monitor vital signs Vancomycin and Rocephin given in ER chronic Diabetes consistent carb diet Accu-check AC+HS and resume home dose of mediations chronic Hypertension On adm BP 132/57 Continue to monitor vital signs and resume home medication. chronic Pulmonary fibrosis Continue with cpap and nebulizer treatments supplemented oxygen Anemia of chronic disease -stable on adm hgb 9.1 continue to monitor Code status: DNR with palliative care only GI ppx: protonix VTE ppx: Ambulate and elevate legs Anticipate discharge home and resume home health 0-1 day Time 40 minutes. - Assessment/Plan (1) Fever Problem: Chronic (2) Sepsis Problem: Acute QualifierTitle: Sepsis type: sepsis due to unspecified organism Qualified Code(s): A41.9 - Sepsis, unspecified organism (3) Diabetes mellitus type 2 in obese Problem: Chronic (4) Hypertension Problem: Chronic QualifierTitle: Hypertension type: essential hypertension Qualified Code( s): I10 - Essential (primary) hypertension (5) Lymphoma Problem: Chronic (6) Pulmonary fibrosis Problem: Chronic <Adama Bey - Last Filed: 05/19/16 10:38> Immunizations: IMMUNIZATION HX Immunizations Up to Date Yes History of Influenza Vaccine No Hx Pneumococcal Vaccination No Exam - Exam Vital Signs: Vital Signs - Last Taken Temp 36.8 C 05/19/16 06:46 Pulse 103 H 05/19/16 09:41 Resp 18 05/19/16 06:46 BP 121/63 05/19/16 09:41 Pulse Ox 96 05/19/16 06:46 Diagnostic Studies: Abnormal Lab Results 05/19/16 05/19/16 05/19/16 Range/Units 00:50 04:43 04:43 RBC 3.17 L (4.7-6.0) M/mm3 Hgb 8.7 L (13.5-18.0) gm/dL Hct 28.0 L (42.0-52.0) % MCHC 31.1 L (32-36) g/dl RDW 19.8 H (11.5-14.0) % MPV 9.9 H (6.0-9.5) fl Immature Gran % (Auto) 1.20 H (0.001-0.429) % Immature Gran # (Auto) 0.07 H (0.000-0.0310) K/mm3 Monocytes % 21.0 H (0.0-9) % Lymphocytes # 1.3 L (1.5-3.5) k/mm3 Monocytes # 1.3 H (0.0-1.0) k/mm3 Sodium 130 L (132-142) mmol/L Chloride 95 L (97-106) mmol/L Est GFR (Non-Af Amer) 149 H (60-130) mL/min Random Glucose 122 H (70-110) mg/dL Lactic Acid, Venous 2.6 H* (0.4-2.0) mmol/L AST 63 H (0-48) U/L Alkaline Phosphatase 1101 H (50-170) U/L Total Protein 5.6 L (6.2-8.2) gm/dL Albumin 2.1 L (3.4-5.0) gm/dl Laboratory Results WBC 5.9 K/mm3 (4.0-10.5) 05/19/16 04:43 RBC 3.17 M/mm3 (4.7-6.0) L 05/19/16 04:43 Hgb 8.7 gm/dL (13.5-18.0) L 05/19/16 04:43 Hct 28.0 % (42.0-52.0) L 05/19/16 04:43 MCV 88.3 fl (78-100) 05/19/16 04:43 MCH 27.4 pg (27-31) 05/19/16 04:43 MCHC 31.1 g/dl (32-36) L 05/19/16 04:43 RDW 19.8 % (11.5-14.0) H 05/19/16 04:43 Plt Count 208 K/mm3 (150-450) 05/19/16 04:43 MPV 9.9 fl (6.0-9.5) H 05/19/16 04:43 Immature Gran % (Auto) 1.20 % (0.001-0.429) H 05/19/16 04:43 Immature Gran # (Auto) 0.07 K/mm3 (0.000-0.0310) H 05/19/16 04:43 Neutrophils % 54.7 % (42-75.0) 05/19/16 04:43 Lymphocytes % 22.6 % (20-51) 05/19/16 04:43 Monocytes % 21.0 % (0.0-9) H 05/19/16 04:43 Eosinophils % 0.0 % (0.0-3.0) 05/19/16 04:43 Basophils % 0.5 % (0.0-1.0) 05/19/16 04:43 Nucleated RBC % 0.0 k/mm3 (0-1) 05/19/16 04:43 Neutrophils # 3.3 K/mm3 (1.3-6.0) 05/19/16 04:43 Lymphocytes # 1.3 k/mm3 (1.5-3.5) L 05/19/16 04:43 Monocytes # 1.3 k/mm3 (0.0-1.0) H 05/19/16 04:43 Eosinophils # 0.0 k/mm3 (0.0-0.7) 05/19/16 04:43 Absolute Basophils 0.0 k/mm3 (0.0-0.1) 05/19/16 04:43 Sodium 130 mmol/L (132-142) L 05/19/16 04:43 Plasma Sodium 130 mmol/L (130-142) 05/19/16 04:43 Potassium 4.1 mmol/L (3.4-4.6) 05/19/16 04:43 Chloride 95 mmol/L (97-106) L 05/19/16 04:43 Carbon Dioxide 30.0 mmol/L (24-32.6) 05/19/16 04:43 Anion Gap 9.1 mmol/L (6.8-13.8) 05/19/16 04:43 BUN 11 mg/dL (6-23) 05/19/16 04:43 Creatinine 0.56 mg/dL (0.4-1.4) 05/19/16 04:43 Est GFR (Non-Af Amer) 149 mL/min (60-130) H 05/19/16 04:43 BUN/Creatinine Ratio 19.6 (9.0-21.6) 05/19/16 04:43 Random Glucose 122 mg/dL (70-110) H 05/19/16 04:43 Lactic Acid, Venous 2.6 mmol/L (0.4-2.0) H* 05/19/16 00:50 Calcium 8.6 mg/dL (7.9-10.9) 05/19/16 04:43 Calcium Adj for Albumin 9.8 mg/dL (8.4-10.2) 05/19/16 04:43 Total Bilirubin 1.0 mg/dL (0.0-1.1) 05/19/16 04:43 AST 63 U/L (0-48) H 05/19/16 04:43 ALT 48 U/L (19-67) 05/19/16 04:43 Alkaline Phosphatase 1101 U/L (50-170) H 05/19/16 04:43 Total Protein 5.6 gm/dL (6.2-8.2) L 05/19/16 04:43 Albumin 2.1 gm/dl (3.4-5.0) L 05/19/16 04:43 Urine Color Yellow 05/18/16 22:20 Urine Appearance Clear 05/18/16 22:20 Urine pH 6.0 pH (5.0-7.0) 05/18/16 22:20 Ur Specific [place] 1.015 SP.GR. (1.005-1.030) 05/18/16 22:20 Urine Protein Negative mg/dL (NEGATIVE) 05/18/16 22:20 Urine Glucose (UA) Negative mg/dL (NEGATIVE) 05/18/16 22:20 Urine Ketones Negative mg/dL (NEGATIVE) 05/18/16 22:20 Urine Blood Negative /ul (NEGATIVE) 05/18/16 22:20 Urine Nitrate Negative (NEGATIVE) 05/18/16 22:20 Urine Bilirubin Negative mg/dl (NEGATIVE) 05/18/16 22:20 Urine Urobilinogen >=8.0 EU/dl (NORMAL) H 05/18/16 22:20 Ur Leukocyte Esterase Negative /ul (NEGATIVE) 05/18/16 22:20 Urine RBC 0-5 /hpf (0-5) 05/18/16 22:20 Urine WBC 0-5 /hpf (0-5) 05/18/16 22:20 Ur Epithelial Cells 5-10 /hpf (0-5) H 05/18/16 22:20 Urine Bacteria Trace (NONE) 05/18/16 22:20 Urine Culture Comments No culture indicated 05/18/16 22:20 Assessment/Plan - Narrative Narrative: Record reviewed, patient examined. Patient is very weak, but comfortable. For now, I will continue the antibiotics we started. We will keep him comfortable. I directly supervised all of our nurse practitioner's care for this patient.
[2016-05-19] MEDS ORDERED: ACETAMINOPHEN 325 MG TABLET PO PRN (01:54)
[2016-05-19] MEDS ORDERED: NITROGLYCERIN 0.4 MG/TAB BTL SL PRN (02:03)
[2016-05-19] MEDS ORDERED: DOCUSATE SODIUM 150 MG/15 ML BTL PO PRN (02:03)
[2016-05-19] MEDS ORDERED: ONDANSETRON HCL 8 MG TABLET PO PRN (02:03)
[2016-05-19] MEDS ORDERED: PROCHLORPERAZINE MALEATE 10 MG TABLET PO PRN (02:03)
[2016-05-19] MEDS ORDERED: [UNRECOGNIZED DRUG - MIXTURE] MM PRN (02:03)
[2016-05-19] MEDS ORDERED: NYSTATIN 60 ML BTL PO PRN (02:03)
[2016-05-19] MEDS ORDERED: SENNOSIDES 8.6 MG TABLET PO PRN (03:00)
[2016-05-19] MEDS: NORMAL SALINE 1,000 ML IV PRN ×2 (04:03→15:42)
[2016-05-19 04:46] LABS: Hemoglobin 8.7 gm/dL (13.5-18.0); Mean Cell Volume 88.3 fl (78-100); Mean Corpuscular Hemoglobin 27.4 pg (27-31); Mean Corpuscular Hgb Conc 31.1 g/dl (32-36); Mean Platelet Volume 9.9 fl (6.0-9.5); Neutrophil # 3.3 K/mm3 (1.3-6.0); Neutrophil % 54.7 % (42-75.0); Platelet Count 208 K/mm3 (150-450); Red Blood Count 3.17 M/mm3 (4.7-6.0); Red Cell Distribution Width 19.8 % (11.5-14.0); White Blood Count 5.9 K/mm3 (4.0-10.5)
[2016-05-19 05:22] LABS: Albumin * 2.1 gm/dl (3.4-5.0); Anion Gap 9.1 mmol/L (6.8-13.8); BUN/Creatinine Ratio 19.6 (9.0-21.6); Ca. Corrected For Albumin 9.8 mg/dL (8.4-10.2); Calcium * 8.6 mg/dL (7.9-10.9); Potassium 4.1 mmol/L (3.4-4.6); Total Protein 5.6 gm/dL (6.2-8.2)
[2016-05-19] MEDS ORDERED: BUDESONIDE 0.5 MG/2 ML VIAL.NEB IH ONE (05:54)
[2016-05-19] MEDS: BUDESONIDE 0.5 MG/2 ML VIAL.NEB IH SCH ×3 (06:01→18:30)
[2016-05-19] MEDS: PANTOPRAZOLE SODIUM 40 MG TABLET.EC PO SCH (07:13)
[2016-05-19] MEDS ORDERED: GABAPENTIN 300 MG CAPSULE PO SCH (09:00)
[2016-05-19] MEDS ORDERED: VANCOMYCIN HCL 1 GM in DEXTROSE 5 % IN WATER 250 ML IV SCH ×2 (09:00)
[2016-05-19] MEDS: CLOTRIMAZOLE/BETAMET DIPROP 15 APPL TUBE TP SCH ×2 (09:40→21:04)
[2016-05-19] MEDS: SODIUM CHLORIDE 1 GM TABLET PO SCH ×2 (09:40→21:02)
[2016-05-19] MEDS: ROSUVASTATIN CALCIUM 10 MG TABLET PO SCH (09:40)
[2016-05-19] MEDS: FINASTERIDE 5 MG TABLET PO SCH (09:40)
[2016-05-19] MEDS: METOPROLOL TARTRATE 50 MG TABLET PO SCH ×2 (09:41→21:03)
[2016-05-19] MEDS: ASPIRIN 81 MG TAB.CHEW PO SCH (09:42)
[2016-05-19] MEDS: NORMAL SALINE 1,000 ML IV SCH ×3 (10:46→10:48)
[2016-05-19] MEDS: ACETAMINOPHEN 650 MG TABLET PO SCH ×3 (11:41→22:21)
[2016-05-19] MEDS: ENOXAPARIN SODIUM 40 MG/0.4 ML SYRG SC SCH (13:20)
[2016-05-19] MEDS: GABAPENTIN 300 MG CAPSULE PO SCH (21:03)
[2016-05-20] MEDS: ACETAMINOPHEN 650 MG TABLET PO SCH ×4 (04:29→22:35)
[2016-05-20] MEDS: BUDESONIDE 0.5 MG/2 ML VIAL.NEB IH SCH ×2 (06:00→20:08)
[2016-05-20 06:03] LABS: Hematocrit 29.2 % (42.0-52.0); Hemoglobin 9.3 gm/dL (13.5-18.0); Mean Cell Volume 86.9 fl (78-100); Mean Corpuscular Hemoglobin 27.7 pg (27-31); Mean Corpuscular Hgb Conc 31.8 g/dl (32-36); Mean Platelet Volume 9.8 fl (6.0-9.5); Platelet Count 231 K/mm3 (150-450); Red Blood Count 3.36 M/mm3 (4.7-6.0); Red Cell Distribution Width 20.1 % (11.5-14.0); White Blood Count 7.9 K/mm3 (4.0-10.5)
[2016-05-20 06:09] LABS: Total Cells Counted 100
[2016-05-20 06:27] LABS: Atypical (Reactive) Lymph 4 % (0-2); Lymphocyte 16 % (20-51); Monocyte 8 % (0-9); Neutrophil 72 % (42-75); Neutrophil # 5.7 K/mm3 (1.3-6.0); Platelet Estimate Normal (NORMAL); RBC Morphology Normal (NORMAL)
[2016-05-20 06:31] LABS: Albumin * 2.1 gm/dl (3.4-5.0); Anion Gap 14.8 mmol/L (6.8-13.8); BUN/Creatinine Ratio 18.6 (9.0-21.6); Bilirubin, Total 1.5 mg/dL (0.0-1.1); Ca. Corrected For Albumin 9.5 mg/dL (8.4-10.2); Carbon Dioxide 25.2 mmol/L (24-32.6); Total Protein 5.7 gm/dL (6.2-8.2)
[2016-05-20 06:35] LABS: Calcium * 8.3 mg/dL (7.9-10.9)
[2016-05-20] MEDS: PANTOPRAZOLE SODIUM 40 MG TABLET.EC PO SCH (07:49)
[2016-05-20] MEDS ORDERED: HYDROXYUREA 500 MG CAPSULE PO SCH (09:00)
[2016-05-20] MEDS: METOPROLOL TARTRATE 50 MG TABLET PO SCH ×2 (09:26→21:45)
[2016-05-20] MEDS: SODIUM CHLORIDE 1 GM TABLET PO SCH ×3 (09:26→16:48)
[2016-05-20] MEDS: ASPIRIN 81 MG TAB.CHEW PO SCH (09:26)
[2016-05-20] MEDS: ROSUVASTATIN CALCIUM 10 MG TABLET PO SCH (09:28)
[2016-05-20] MEDS: CLOTRIMAZOLE/BETAMET DIPROP 15 APPL TUBE TP SCH ×2 (09:29→21:46)
[2016-05-20] MEDS: FINASTERIDE 5 MG TABLET PO SCH (09:29)
[2016-05-20] MEDS: VANCOMYCIN HCL 1.75 GM in DEXTROSE 5 % IN WATER 500 ML IV SCH ×2 (10:48)
--- NOTE | 2016-05-20 11:56 | PN ---
Subjective - Date and Time Seen Date: 05/20/16 Time: 07:35 Subjective Narrative: About the same. Son wants to know how we diagnosed sepsis, if there were other possibilities, and if we would contact [facility] about him. I said probably lymphoma just getting worse, but could also be sepsis. Later I called the [facility], and talked with Dr. Golden, hematology and oncology. Dr. Golden said nothing else to do, but suggested an LDH level. If up , consistent with worsening lymphoma. Level at the most recently about 315- 325. (Level today is in fact up, at 384.) Objective - Review of Systems Generalized/Overall Review: Reports: Weakness, Malaise, Fatigue EENTM: Reports: No Symptoms Reported Respiratory: Reports: No Symptoms Reported Cardiac: Reports: No Symptoms Reported Abdominal: Reports: No Symptoms Reported Genitourinary Symptoms: Reports: No Symptoms Reported Musculoskeletal Complaints: Reports: No Symptoms Reported Neurological: Reports: No Symptoms Reported Skin: Reports: No Symptoms Reported Endocrine: Reports: No Symptoms Reported Misc: All systems neg except as marked - Vitals Vitals: Last Vital Signs Selected Entries 05/20/16 06:53 Temperature 38.6 C H Temperature Oral Source Pulse Rate 116 H Respiratory 20 Rate Respiratory Normal Depth Blood Pressure 110/58 Blood Pressure Supine Position O2 Sat by Pulse 98 Oximetry Oxygen Delivery Room Air Method Oxygen Flow 0 Rate - Abnormal Lab Findings Abnormal Lab Findings: Abnormal Lab Results 05/20/16 05/20/16 05/20/16 Range/Units 05:55 05:55 05:55 RBC 3.36 L (4.7-6.0) M/mm3 Hgb 9.3 L (13.5-18.0) gm/dL Hct 29.2 L (42.0-52.0) % MCHC 31.8 L (32-36) g/dl RDW 20.1 H (11.5-14.0) % MPV 9.8 H (6.0-9.5) fl Lymphocytes % (Manual) 16 L (20-51) % Lymphocytes # (Manual) 1.3 L (1.5-3.5) k/mm3 Atypic/Reactive Lymphs 4 H (0-2) % Sodium 129 L (132-142) mmol/L Plasma Sodium 129 L (130-142) mmol/L Chloride 93 L (97-106) mmol/L Anion Gap 14.8 H (6.8-13.8) mmol/L Est GFR (Non-Af Amer) 140 H (60-130) mL/min Random Glucose 126 H (70-110) mg/dL Total Bilirubin 1.5 H (0.0-1.1) mg/dL AST 64 H (0-48) U/L Alkaline Phosphatase 1072 H (50-170) U/L Lactate Dehydrogenase 378 H (85-227) U/L Total Protein 5.7 L (6.2-8.2) gm/dL Albumin 2.1 L (3.4-5.0) gm/dl - Exam Constitutional: Present: Cooperative, Well developed, Well nourished, Lethargic , Other - looks exhausted ENT Exam: Present: normal ENT inspection Neck: Present: normal inspection Respiratory: Present: lungs clear, no respiratory distress Cardiovascular/Chest: Present: regular rate, rhythm, no murmur Abdomen: Present: Normal bowel sounds, soft, nontender, nondistended, no rebound tenderness, no hepatospenomegaly, no masses Extremity: Present: normal inspection, no pedal edema Skin Exam: Present: no cyanosis, cool/dry Assessment/Plan Plan Narrative: Follow labs. Continue with current treatment plan. - Problems/Diagnosis (1) Sepsis Problem: Acute Qualifiers: Sepsis type: sepsis due to unspecified organism Qualified Code(s): A41.9 - Sepsis, unspecified organism (2) Lymphoma Problem: Chronic
[2016-05-20] MEDS: ENOXAPARIN SODIUM 40 MG/0.4 ML SYRG SC SCH (12:13)
[2016-05-20] MEDS: GABAPENTIN 300 MG CAPSULE PO SCH (21:45)
[2016-05-21] MEDS: NORMAL SALINE 1,000 ML IV PRN (00:26)
[2016-05-21] MEDS: ACETAMINOPHEN 650 MG TABLET PO SCH ×4 (04:20→23:41)
[2016-05-21 06:29] LABS: Albumin * 1.9 gm/dl (3.4-5.0); Anion Gap 13.3 mmol/L (6.8-13.8); BUN/Creatinine Ratio 29.1 (9.0-21.6); Ca. Corrected For Albumin 9.6 mg/dL (8.4-10.2); Calcium * 8.2 mg/dL (7.9-10.9); Carbon Dioxide 24.6 mmol/L (24-32.6); Potassium 3.9 mmol/L (3.4-4.6); Total Protein 5.2 gm/dL (6.2-8.2)
[2016-05-21] MEDS: PANTOPRAZOLE SODIUM 40 MG TABLET.EC PO SCH (06:48)
[2016-05-21] MEDS: BUDESONIDE 0.5 MG/2 ML VIAL.NEB IH SCH ×2 (07:00→20:33)
--- NOTE | 2016-05-21 08:14 | PN ---
Subjective - Date and Time Seen Date: 05/21/16 Time: 08:02 Subjective Narrative: Eating breakfast. He is a DNR. Wants to talk to Hospice. Had drenching sweats yesterday. Objective - Review of Systems Generalized/Overall Review: Reports: Weakness, Fever EENTM: Reports: No Symptoms Reported Respiratory: Reports: Cough. Denies: Shortness of Breath Cardiac: Denies: Chest Pain, Edema, Palpitations Abdominal: Denies: Nausea, Vomiting Genitourinary Symptoms: Denies: Urgency, Frequency - Vitals Vitals: Last Vital Signs Temp 36.9 C 05/21/16 06:53 Pulse 82 05/21/16 07:10 Resp 24 H 05/21/16 07:10 BP 124/67 05/21/16 06:53 Pulse Ox 94 05/21/16 07:00 - Abnormal Lab Findings Abnormal Lab Findings: Abnormal Lab Results 05/20/16 05/21/16 Range/Units 05:55 05:25 Sodium 128 L (132-142) mmol/L Plasma Sodium 128 L (130-142) mmol/L Chloride 94 L (97-106) mmol/L Est GFR (Non-Af Amer) 152 H (60-130) mL/min BUN/Creatinine Ratio 29.1 H (9.0-21.6) Random Glucose 122 H (70-110) mg/dL AST 58 H (0-48) U/L Alkaline Phosphatase 800 H (50-170) U/L Lactate Dehydrogenase 378 H (85-227) U/L Total Protein 5.2 L (6.2-8.2) gm/dL Albumin 1.9 L (3.4-5.0) gm/dl - Exam Constitutional: Present: Alert, Oriented x3, Cooperative, Elderly ENT Exam: Present: hearing grossly normal Neck: Present: supple Respiratory: Present: decreased breath sounds, crackles - fine. Absent: No rales, No wheezing Cardiovascular/Chest: Present: regular rate, rhythm, no JVD, no murmur Abdomen: Present: Normal bowel sounds, soft, nontender, nondistended Extremity: Present: no pedal edema, no calf tenderness Assessment/Plan - Problems/Diagnosis (1) Fever Problem: Chronic Qualifiers: Fever type: due to other condition Qualified Code(s): R50.81 - Fever presenting with conditions classified elsewhere Narrative: likely due to Lymphoma B symtoms, r/o pneumonia. CXR showing opacity on admission. will do follow up CXR and continue with IV antibiotics. They are wanting to talk to Hospice today. 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 (3) Hyponatremia Problem: Acute Narrative: likely hypotonic, hypovolemic. (4) Diabetes mellitus type 2 in obese Problem: Chronic (5) Hyperlipidemia Problem: Chronic Qualifiers: Hyperlipidemia type: mixed hyperlipidemia Qualified Code(s): E78.2 - Mixed hyperlipidemia (6) Hypertension Problem: Chronic Qualifiers: Hypertension type: essential hypertension Qualified Code(s): I10 - Essential (primary) hypertension (7) Pulmonary fibrosis Problem: Chronic
[2016-05-21] MEDS: ASPIRIN 81 MG TAB.CHEW PO SCH (09:01)
[2016-05-21] MEDS: ROSUVASTATIN CALCIUM 10 MG TABLET PO SCH (09:02)
[2016-05-21] MEDS: METOPROLOL TARTRATE 50 MG TABLET PO SCH ×2 (09:02→20:24)
[2016-05-21] MEDS: CLOTRIMAZOLE/BETAMET DIPROP 15 APPL TUBE TP SCH ×2 (09:02→20:24)
[2016-05-21] MEDS: FINASTERIDE 5 MG TABLET PO SCH (09:02)
[2016-05-21] MEDS: SODIUM CHLORIDE 1 GM TABLET PO SCH ×3 (09:03→17:57)
[2016-05-21] MEDS: VANCOMYCIN HCL 1.75 GM in DEXTROSE 5 % IN WATER 500 ML IV SCH ×2 (10:00)
[2016-05-21] MEDS: ENOXAPARIN SODIUM 40 MG/0.4 ML SYRG SC SCH (12:20)
[2016-05-21 15:18] VITALS: BP 147/78
[2016-05-21] MEDS ORDERED: FUROSEMIDE 10 MG/ML VIAL IV ONE (16:31)
--- NOTE | 2016-05-21 18:35 | PN ---
Progess Note - Interim Narrative: 05/21/16 18:34 Patient in acute respiratory distress. Comfort cares only.
[2016-05-21] MEDS: MORPHINE SULFATE 2 MG/ML DISP.SYRIN IV PRN ×4 (19:03→23:06)
[2016-05-21] MEDS: LORazepam 2 MG/ML DISP.SYRIN IV SCH ×4 (19:09→23:07)
[2016-05-21] MEDS: GABAPENTIN 300 MG CAPSULE PO SCH (20:24)
--- NOTE | 2016-05-22 05:45 | DS ---
Discharge Summary - Provider Primary Care Provider: Isabella Blakely Admitting Clinician: Elver Lopez Attending Physician on Admission: Adama Bey Pronouncing Clinician: Elver Lopez - Date and Time Date of : 05/21/16 Time of : 23:50 - Diagnosis/Cause of (1) Fever Problems: Chronic (2) Sepsis Problems: Suspected (3) Diabetes mellitus type 2 in obese Problems: Chronic (4) Hypertension Problems: Chronic (5) Lymphoma Problems: Chronic (6) Pulmonary fibrosis Problems: Chronic - Summary Details (narrative): 80 years old male adm to the hospital from home with reports of elevated temp. PMH significant for pulmonary fibrosis, Right leg lymphedema, lymphoma ( pt refused to continue with chemotherapy 2 months ago elected palliative care), hypertension, diabetes, and anemia. Per family and (POA) pt was in [place] getting chemotherapy but was unable to tolerate and refused to continue with treatment and elected palliative care. Since he stopped chemotherapy he had a fever and Oncologist adjust fever parameter, if pt have fever of 102 or above to go to the ER. He was adm to [facility] for fever greater than his usual baseline. Family want pt to be adm for comfort care. In ER WBC 5.6, hgb 9.1, Na+ 130, Lactic acid 3.5, he was given Iv antbx in ER and IVF resuscitation. 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 No further interventions and likely spiking temp is as a result of the pt worsening lymphoma recommendations for LDH level 384 which is consistent with his worsening condition.Approximately 1800 patient become more unresponsive , in acute respiratory distress and was not able to tolerate Cpap. Family requested only to have comfort care and to consult hospice. 2350 pt as a result of respiratory failure secondary to his worsened lymphoma. Procedures Performed: none - Additional Data Confirmation of as documented by pronouncing clinician: no pulse, no respirations, no heart sounds, pupils fixed and dilated Family: at bedside Additional persons at bedside: communications advisor Attending/PCP notified: Yes Attending physician: Isabella Blakely Was code activated: No Autopsy requested: No Contact Center Agent notified: Yes [employer] notified: No Advance Directives: Yes Hospice patient: No
== END 2016-05-21 23:50 | disposition expired | DRG 841 ==
LOC: ER 20:46 → MS 22:47
PROVIDERS: ADMIT Nurse Practitioner; ATTEND Internal Medicine
DX: C82.98 Follicular lymphoma, unspecified, lymph nodes of multiple sites (principal); E87.1 Hypo-osmolality and hyponatremia; R06.00 Dyspnea, unspecified; J84.10 Pulmonary fibrosis, unspecified; E11.9 Type 2 diabetes mellitus without complications; I10 Essential (primary) hypertension; E78.5 Hyperlipidemia, unspecified; I25.2 Old myocardial infarction; Z95.5 Presence of coronary angioplasty implant and graft; Z87.891 Personal history of nicotine dependence; Z79.82 Long term (current) use of aspirin